=== PATIENT | female | born 1985 | race Caucasian/White ===

== ENCOUNTER 2016-10-31 14:18 | Emergency (ER) | payer MEDICAID ==
[~2016-10-31] VITALS: Ht 157.5 cm; Wt 54.0 kg
[~2016-10-31 14:18] MED LIST: DOXY100C47
[2016-10-31 14:23] VITALS: Ht 157.5 cm; Wt 54.0 kg
[2016-10-31 15:33] LABS: ADD UMIC YES; URINE BILIRUBIN (Dip) NEGATIVE (NEGATIVE); URINE BLOOD (Dip) 2+ (NEGATIVE); URINE COLOR LT. YELLOW (YELLOW); URINE GLUCOSE (Dip) NEGATIVE (NEGATIVE); URINE KETONES (Dip) NEGATIVE (NEGATIVE); URINE LEUKOCYTE ESTERASE (Dip) TRACE (NEGATIVE); URINE NITRITE (Dip) NEGATIVE (NEGATIVE); URINE TOTAL PROTEIN (Dip) TRACE (NEGATIVE); URINE UROBILINOGEN (Dip) 0.2 E.U./dL (0.1-1.0)
[2016-10-31 15:40] LABS: MUCUS,URINE FEW; SQUAMOUS EPITHELIAL CELL,UR FEW
[2016-10-31 15:51] LABS: BASOPHILS % 0.3 % (0.0-2.0); EOSINOPHILS # 0.1 10^3/ul (0.0-0.5); EOSINOPHILS % 1.1 % (0.0-7.0); HEMATOCRIT 38.2 % (37.0-47.0); HEMOGLOBIN 12.8 g/dl (12.0-16.0); LYMPHOCYTES # 2.8 10^3/ul (0.8-2.9); LYMPHOCYTES % 36.4 % (15.0-51.0); MEAN CORPUSCULAR HEMOGLOBIN 29.5 pg (29.0-33.0); MEAN CORPUSCULAR HGB CONC 33.6 g/dl (32.0-37.0); MEAN PLATELET VOLUME 8.5 fl (7.4-10.4); MONOCYTE # 0.5 10^3/ul (0.3-0.9); NEUTROPHIL # 4.4 10^3/ul (1.6-7.5); NEUTROPHILS % 56.2 % (39.0-77.0); PLATELET COUNT 216 10^3/UL (140-440); RED BLOOD COUNT 4.34 10^6/ul (4.20-5.40); RED CELL DISTRIBUTION WIDTH 13.2 % (11.5-14.5); UNCORRECTED WBC 7.8 10^3/ul (4.8-10.8); WHITE BLOOD COUNT 7.8 10^3/ul (4.8-10.8)
[2016-10-31 16:00] LABS: CONDITION 1
[2016-10-31 16:02] LABS: ALBUMIN 4.1 g/dl (3.3-4.9); POTASSIUM 4.1 mmol/L (3.5-5.1)
[2016-10-31 16:04] LABS: CREATININE 0.69 mg/dl (0.44-1.00)
[2016-10-31 16:05] LABS: ALBUMIN/GLOBULIN RATIO 1.36; BILIRUBIN,INDIRECT 0.1 mg/dl (0-1.1); BILIRUBIN,TOTAL 0.1 mg/dl (0.2-1.3); CALCIUM 8.8 mg/dl (8.4-10.2); TOTAL PROTEIN 7.1 g/dl (6.1-8.1)
--- NOTE | 2016-10-31 16:56 | RADRPT ---
PROCEDURE: US Pelvis. CLINICAL INDICATION: Lower pelvic pain, vaginal bleeding. TECHNIQUE: Multiple sonographic images of the pelvis were obtained utilizing a transabdominal and endovaginal technique. The images were reviewed on a PACS workstation. COMPARISON: Ovary ultrasound from 08/11/2014. FINDINGS: The uterus is retroverted and measures 9.2 x 4.5 x 5.8 cm. The endometrial echo complex is remarkabl e for a trace amount of fluid in the endometrial canal and measures 6.1 mm. There is trace free flui d in the cul-de-sac. The right ovary has a normal echotexture and measures 2.3 x 1.7 x 2.2 cm. The left ovary has a normal echotexture and measures 2.8 x 1.9 x 1.9 cm. There is a 1.5 x 1.2 x 1.3 cm l eft ovarian cyst. There is normal Doppler flow to both ovaries. No adnexal masses are noted. IMPRESSION: 1. 1.5 x 1.2 x 1.3 cm left ovarian cyst, likely a follicle. The remainder of the study is unremarka ble. RPTAT: [facility] Physician Philomena Date Time Electronically viewed and signed by Physician Philomena on 10/31/2016 16:56 /
[2016-10-31] MEDS ORDERED: IBUP400T22 PO (17:24)
[2016-10-31] MEDS ORDERED: CEPH-443 PO (17:24)
--- NOTE | 2016-10-31 18:05 | ERD ---
ER Documentation Chief Complaint Date/Time DATE: 10/31/16 TIME: 18:00 Chief Complaint Pt with Pelvic pain X 2 weeks, spotting. HPI 31-year-old female who is a presents to the ED complaining of vaginal bleeding that started 1 month ago on September 15, 2016. States that she has had to change 2 pads per day. States that this was the day of her last menses. She reports that she had a vaginal tissue that came out of her vagina today and brought it to the ED. Reports that she has been taking Advil for her slight lower abdominal/pelvic pain. Denies any vaginal discharge, chest pain, shortness of breath, wheezing, nausea, vomiting, constipation, diarrhea, weakness. ROS All systems reviewed and are negative except as per history of present illness. Medications Home Meds Active Scripts Ibuprofen* (Motrin*) 400 Mg Tab, 400 MG PO Q6, #30 TAB Prov:ABEL BENJAMIN PA-C 10/31/16 Cephalexin* (Keflex*) 500 Mg Capsule, 500 MG PO QID for 7 Days, CAP Prov:ABEL BENJAMIN PA-C 10/31/16 Reported Medications Doxycycline Hyclate (Doxycycline Hyclate) 100 Mg Capsule., 1 BID 06/27/13 Allergies Allergies: Coded Allergies: No Known Allergy (Verified , 08/11/14) PMhx/Soc Medical and Surgical Hx: pt denies Medical Hx History of Surgery: Yes (C SECTION) Anesthesia Reaction: No Hx Neurological Disorder: No Hx Respiratory Disorders: No Hx Cardiac Disorders: No Hx Psychiatric Problems: No Hx Miscellaneous Medical Probl: No Hx Alcohol Use: No (DENIES) Hx Substance Use: No (DENIES) Smoking Status: Never smoker Physical Exam Vitals Vital Signs Date Time Temp Pulse Resp B/P Pulse Ox O2 Delivery O2 Flow Rate FiO2 10/31/16 14:23 97.6 76 18 110/71 100 Physical Exam Const: Ube-fbd-enjnohknu, well-nourished. In no acute distress. Head: Atraumatic, normocephalic Eyes: Normal Conjunctiva without injection. No purulent discharge. ENT: Normal external ear, nose. Moist oropharynx without tonsillar exudates. Non -erythematous pharynx. Uvula midline. No drooling. No trismus. Neck: No cervical midline tenderness. Full range of motion. No meningismus. No cervical lymphadenopathy. No JVD. Resp: Clear to auscultation bilaterally. No wheezing, rhonchi, rales, or crackles. No accessory muscle use. No retractions. Cardio: Regular rate and rhythm. No murmurs, rubs or gallops. Abd: Soft, suprapubic tenderness, non distended. Normal bowel sounds. No palpable masses. No rebound tenderness. No guarding. Negative McBurney's point. Negative psoas sign. Negative obturator sign. Skin: No petechiae or rashes Back: No midline tenderness. No CVA tenderness. Ext: No cyanosis, or edema. Neur: Awake and alert. Normal gait. Normal coordination. Psych: Normal Mood and Affect Result Diagram: 10/31/16 1535 10/31/16 1535 Results 24 hrs Laboratory Tests Test 10/31/16 15:20 10/31/16 15:35 Urine Bilirubin NEGATIVE Urine Clarity CLEAR Urine Color LT. YELLOW Urine Glucose NEGATIVE% Urine Hemoglobin 2+ Urine Ketones NEGATIVE Urine Leukocyte Esterase TRACE Urine Microscopic RBC 2-5/HPF Urine Microscopic WBC 5-10/HPF Urine Mucus FEW Urine Nitrite NEGATIVE Urine Specific [place] >=1.030 Urine Squamous Epithelial Cells FEW Urine Total Protein TRACE Urine Urobilinogen 0.2 E.U./dL Urine pH 6.5 Alanine Aminotransferase (ALT/SGPT) 20IU/L Albumin 4.1g/dl Albumin/Globulin Ratio 1.36 Alkaline Phosphatase 72IU/L Anion Gap 15 Aspartate Amino Transf (AST/SGOT) 19IU/L Basophils # 0.010^3/ul Basophils % 0.3% Blood Urea Nitrogen 12mg/dl Calcium Level 8.8mg/dl Carbon Dioxide Level 28mmol/L Chloride Level 105mmol/L Creatinine 0.69mg/dl Direct Bilirubin 0.00mg/dl Eosinophils # 0.110^3/ul Eosinophils % 1.1% Globulin 3.00g/dl Glucose Level 94mg/dl Hematocrit 38.2% Hemoglobin 12.8g/dl Indirect Bilirubin 0.1mg/dl Lipase 132U/L Lymphocytes # 2.810^3/ul Lymphocytes % 36.4% Mean Corpuscular Hemoglobin 29.5pg Mean Corpuscular Hemoglobin Concent 33.6g/dl Mean Corpuscular Volume 88.0fl Mean Platelet Volume 8.5fl Monocytes # 0.510^3/ul Monocytes % 6.0% Neutrophils # 4.410^3/ul Neutrophils % 56.2% Nucleated Red Blood Cells # 0.010^3/ul Nucleated Red Blood Cells % 0.0/100WBC Platelet Count 02641^3/UL Potassium Level 4.1mmol/L Red Blood Count 4.3410^6/ul Red Cell Distribution Width 13.2% Sodium Level 144mmol/L Total Bilirubin 0.1mg/dl Total Protein 7.1g/dl White Blood Count 7.810^3/ul Procedures/MDM 31-year-old female with no significant past medical history who is a presents the ED complaining of lower pelvic pain associated with vaginal bleeding that started 1 month ago. Patient is afebrile nontoxic appearing. Patient has normal vital signs. An ultrasound, CMP, CBC, UA was ordered to evaluate patient. CBC: No leukocytosis. No e/o of systemic infection. No e/o anemia. CMP: No e/o severe acidosis, alkalosis, renal failure, diabetic ketoacidosis, liver disease Urine: No elevation in nitrites, trace leukocyte esterase with 5-10 WBC, hematuria. No evidence of UTI Patient brought in a vaginal tissue that will be sent out for pathology. PROCEDURE: US Pelvis. CLINICAL INDICATION: Lower pelvic pain, vaginal bleeding. TECHNIQUE: Multiple sonographic images of the pelvis were obtained utilizing a transabdominal and endovaginal technique. The images were reviewed on a PACS workstation. COMPARISON: Ovary ultrasound from 08/11/2014. FINDINGS: The uterus is retroverted and measures 9.2 x 4.5 x 5.8 cm. The endometrial echo complex is remarkable for a trace amount of fluid in the endometrial canal and measures 6.1 mm. There is trace free fluid in the cul-de-sac. The right ovary has a normal echotexture and measures 2.3 x 1.7 x 2.2 cm. The left ovary has a normal echotexture and measures 2.8 x 1.9 x 1.9 cm. There is a 1.5 x 1.2 x 1.3 cm left ovarian cyst. There is normal Doppler flow to both ovaries. No adnexal masses are noted. IMPRESSION: 1. 1.5 x 1.2 x 1.3 cm left ovarian cyst, likely a follicle. The remainder of the study is unremarkable. Patient's bleeding symptoms have stabilized while in the department. Patient may have a slight urinary tract infection. Low suspicion for symptomatic anemia , ectopic , sepsis, PID, appendicitis, ovarian torsion, tubo-ovarian abscess, surgical abdomen, or other emergent conditions. Discharge medications: Keflex, Ibuprofen Patient to follow up with SENIOR ARCHITECT/DESIGN MANAGER in 2 days for further evaluation and treatment. Patient is to return sooner to the ED for any worsening symptoms. Patient's questions were answered. Patient understood and agreed with discharge plan. Departure Diagnosis: Primary Impression: Dysfunctional uterine bleeding Additional Impressions: Urinary tract infection Urinary tract infection type: site unspecified Hematuria presence: without hematuria Qualified Code: N39.0 - Urinary tract infection without hematuria, site unspecified Ovarian cyst Laterality: left Qualified Code: N83.202 - Cyst of left ovary Condition: Stable Patient Instructions: Urinary Tract Infections in Women, Dysfunctional Uterine Bleeding, Ovarian Cyst Referrals: [facility] YOU HAVE RECEIVED A MEDICAL SCREENING EXAM AND THE RESULTS INDICATE THAT YOU DO NOT HAVE A CONDITION THAT REQUIRES URGENT TREATMENT IN THE EMERGENCY DEPARTMENT. FURTHER EVALUATION AND TREATMENT OF YOUR CONDITION CAN WAIT UNTIL YOU ARE SEEN IN YOUR DOCTORS OFFICE WITHIN THE NEXT 1-2 DAYS. IT IS YOUR RESPONSIBILITY TO MAKE AN APPOINTMENT FOR FOLOW-UP CARE. IF YOU HAVE A PRIMARY DOCTOR --you should call your primary doctor and schedule an appointment IF YOU DO NOT HAVE A PRIMARY DOCTOR YOU CAN CALL OUR PHYSICIAN REFERRAL HOTLINE AT IF YOU CAN NOT AFFORD TO SEE A PHYSICIAN YOU CAN CHOSE FROM THE FOLLOWING [facility] [address] [facility]. [facility] [address] [facility] [address] [facility]. [facility] [address] [facility]. [facility] [address] [facility]. [facility]. [address] [facility] YOU HAVE RECEIVED A MEDICAL SCREENING EXAM AND THE RESULTS INDICATE THAT YOU DO NOT HAVE A CONDITION THAT REQUIRES URGENT TREATMENT IN THE EMERGENCY DEPARTMENT. FURTHER EVALUATION AND TREATMENT OF YOUR CONDITION CAN WAIT UNTIL YOU ARE SEEN IN YOUR DOCTORS OFFICE WITHIN THE NEXT 1-2 DAYS. IT IS YOUR RESPONSIBILITY TO MAKE AN APPOINTMENT FOR FOLOW-UP CARE. IF YOU HAVE A PRIMARY DOCTOR --you should call your primary doctor and schedule and appointment IF YOU DO NOT HAVE A PRIMARY DOCTOR YOU CAN CALL OUR PHYSICIAN REFERRAL HOTLINE AT . IF YOU CAN NOT AFFORD TO SEE A PHYSICIAN YOU CAN CHOSE FROM THE FOLLOWING [facility] INSTITUTIONS: [facility] [address] [place] [address] [facility] [address] [place] [address] [facility] + [facility] [address] [place] [address] SENIOR ARCHITECT/DESIGN MANAGER [place] [address] [facility] [address] [place] [address] [address] [place] [address] [address] [place] [address] [place] [address] [address] [facility] [address] [facility], [address] [address] [facility] [address] [place] [address] [facility] [address] [place] [address] [phone] [facility] [address] - ARSEN MENDOZA [address], [facility] [address] [address] [address] [facility] [address], [facility] [address] [address] [facility] [address] [place], [place] [address] [facility] Hours: 8:00 am - 5:00 pm Additional Instructions: Seguimiento con ginecoobstetra dentro de 2 maria Regrese a estas instalaciones si no se mejora rich esperbamos o rich le dijimos. ABEL BENJAMIN PA-C Oct 31, 2016 18:05
== END 2016-10-31 17:53 | disposition home or self-care (01) ==
LOC: FTE 14:18
DX: N93.8 Other specified abnormal uterine and vaginal bleeding (principal); N39.0 Urinary tract infection, site not specified; N83.202 Unspecified ovarian cyst, left side; R10.2 Pelvic and perineal pain
CPT/HCPCS: 76830; 76856; 80053; 81001; 83690; 85025; 88305; Z7502; 81003

== ENCOUNTER 2016-12-13 14:08 | Emergency (ER) | payer MEDICAID ==
[~2016-12-13] VITALS: Ht 165.1 cm; Wt 53.3 kg
[~2016-12-13 14:08] MED LIST changes: +CEPH-443 PO; +IBUP400T22 PO
[2016-12-13 14:35] VITALS: Ht 165.1 cm; Wt 53.3 kg
[2016-12-13 17:22] LABS: ADD SCAN DIFF NO
[2016-12-13 17:24] LABS: BASOPHILS % 0.3 % (0.0-2.0); EOSINOPHILS # 0.2 10^3/ul (0.0-0.5); EOSINOPHILS % 1.9 % (0.0-7.0); HEMATOCRIT 38.8 % (37.0-47.0); HEMOGLOBIN 13.1 g/dl (12.0-16.0); LYMPHOCYTES % 37.7 % (15.0-51.0); MEAN CORPUSCULAR HEMOGLOBIN 29.9 pg (29.0-33.0); MEAN CORPUSCULAR HGB CONC 33.8 g/dl (32.0-37.0); MEAN CORPUSCULAR VOLUME 88.6 fl (82.0-101.0); MEAN PLATELET VOLUME 10.3 fl (7.4-10.4); MONOCYTE # 0.6 10^3/ul (0.3-0.9); MONOCYTES % 7.6 % (0.0-11.0); NEUTROPHIL # 4.2 10^3/ul (1.6-7.5); NEUTROPHILS % 52.4 % (39.0-77.0); PLATELET COUNT 221 10^3/UL (140-415); RED BLOOD COUNT 4.38 10^6/ul (4.20-5.40); RED CELL DISTRIBUTION WIDTH 12.4 % (11.5-14.5); WHITE BLOOD COUNT 7.9 10^3/ul (4.8-10.8)
[2016-12-13 17:30] LABS: ADD UMIC YES; URINE BILIRUBIN (Dip) NEGATIVE (NEGATIVE); URINE BLOOD (Dip) 3+ (NEGATIVE); URINE GLUCOSE (Dip) NEGATIVE (NEGATIVE); URINE KETONES (Dip) NEGATIVE (NEGATIVE); URINE LEUKOCYTE ESTERASE (Dip) TRACE (NEGATIVE); URINE NITRITE (Dip) NEGATIVE (NEGATIVE); URINE TOTAL PROTEIN (Dip) NEGATIVE (NEGATIVE); URINE UROBILINOGEN (Dip) 0.2 E.U./dL (0.1-1.0)
[2016-12-13 17:34] LABS: POTASSIUM 3.9 mmol/L (3.5-5.1)
[2016-12-13 17:35] LABS: URINE COLOR YELLOW (YELLOW)
[2016-12-13 17:36] LABS: ALBUMIN/GLOBULIN RATIO 1.05; BILIRUBIN,INDIRECT 0.1 mg/dl (0-1.1); BILIRUBIN,TOTAL 0.1 mg/dl (0.2-1.3); CREATININE 0.64 mg/dl (0.44-1.00); TOTAL PROTEIN 7.8 g/dl (6.1-8.1)
[2016-12-13 17:37] LABS: CALCIUM 9.1 mg/dl (8.4-10.2)
[2016-12-13 17:42] LABS: BACTERIA,URINE FEW; SQUAMOUS EPITHELIAL CELL,UR MODERATE; URINE RBCS >50 /HPF (0)
[2016-12-13] MEDS ORDERED: SOD CHLORIDE 0.9% 100 ML ONE (18:16)
[2016-12-13] MEDS ORDERED: IOHEXOL 300MG/ML 150 ML BTL ONE (18:16)
--- NOTE | 2016-12-13 18:43 | RADRPT ---
PROCEDURE: CT abdomen and pelvis with. contrast. CLINICAL INDICATION: Hematuria. Back pain. TECHNIQUE: IV contrast enhanced CT examination of the abdomen and pelvis, with axial, sagittal and coronal reformatted images. 100 cc Isovue 300 nonionic IV contrast were employed. Automated dose e xposure control was employed. CTDI: 9 mGy and DLP: 409.82 mGy-cm. COMPARISON: None. FINDINGS: CT abdomen: The lung bases are clear. The heart size is normal, without pericardial thickening or effusion. The liver is normal in size and density without focal mass or intrahepatic biliary dilatation. The spleen is normal in size and homogeneous in density. The stomach is partially collapsed, but is alex ssly unremarkable. The pancreas as visualized is normal. The gallbladder and biliary tree are unre markable and there is no evidence for biliary dilatation. The adrenal glands are symmetric and norm al. There is a 6 x 3 x 3 mm calculus at the right ureteral pelvic junction, and there is mild right hydronephrosis. Findings are compatible with obstructive uropathy. No additional obstructive uropa thy is identified. The aorta is of normal caliber. There is no retroperitoneal lymphadenopathy. The mookie hepatis reg ion is clear. The bowel and mesentery, as visualized, are equally unremarkable. CT pelvis: The small bowel loops situated within the pelvis are unremarkable. The pelvic organs are normal. T he pelvic sidewalls and inguinal regions are clear. The sigmoid colon and rectum are all unremarkab le. No mass, lymphadenopathy, or free fluid is seen. No acute inflammation is seen. The appendix is unremarkable. The surrounding osseous structures are remarkable for mild degenerative spondylosis of the spine. N o osteolytic or osteoblastic lesion is detected. IMPRESSION: 1. 6 x 3 x 3 mm calculus at the right ureteral pelvic junction. 2.. There is mild right hydronephrosis compatible with obstructive uropathy. 3. Otherwise, no acute process in the abdomen RPTAT: [facility] Physician Kylee Date Time Electronically viewed and signed by Physician Kylee on 12/13/2016 18:42 RS/
[2016-12-13] MEDS ORDERED: TAMS-14 PO (20:36)
[2016-12-13] MEDS ORDERED: HYDR-902 PO (20:36)
[2016-12-13] MEDS ORDERED: CIPR500T4 PO (20:36)
--- NOTE | 2016-12-13 20:40 | ERD ---
ER Documentation Chief Complaint Date/Time DATE: 12/13/16 TIME: 20:39 Chief Complaint FLANK PAIN & HEMATURIA STARTING TODAY HPI This is a 31-year-old female who complains of day 2 of right back pain with gross hematuria this morning. She says the pain is off and on and is mild in nature no vomiting no diarrhea no fever no abdominal pain no history of kidney stones no frequency of urination or dysuria. Pain is nonradiating and nothing makes the pain worse or better ROS All systems reviewed and are negative except as per history of present illness. Medications Home Meds Active Scripts Hydrocodone/Acetaminophen (Ardara 10-325 Tablet) 1 Each Tablet, 1 TAB PO Q6H Y for PAIN, #20 TAB Prov:ORAL CURRY DO 12/13/16 Ciprofloxacin Hcl* (Ciprofloxacin Hcl*) 500 Mg Tablet, 500 MG PO BID for 10 Days , TAB Prov:JULES CURRYSTOLOS Rush. DO 12/13/16 Tamsulosin Hcl* (Flomax*) 0.4 Mg Cap.er.24h, 0.4 MG PO DAILY, #10 CAP Prov:JIMENA CURRYS Kevin DO 12/13/16 Ibuprofen* (Motrin*) 400 Mg Tab, 400 MG PO Q6, #30 TAB Prov:ABEL BENJAMIN PA-C 10/31/16 Cephalexin* (Keflex*) 500 Mg Capsule, 500 MG PO QID for 7 Days, CAP Prov:ABEL BENJAMIN PA-C 10/31/16 Reported Medications Doxycycline Hyclate (Doxycycline Hyclate) 100 Mg Capsule., 1 BID 06/27/13 Allergies Allergies: Coded Allergies: No Known Allergy (Verified , 08/11/14) PMhx/Soc History of Surgery: Yes (C SECTION) Anesthesia Reaction: No Hx Neurological Disorder: No Hx Respiratory Disorders: No Hx Cardiac Disorders: No Hx Psychiatric Problems: No Hx Miscellaneous Medical Probl: No Hx Alcohol Use: No (DENIES) Hx Substance Use: No (DENIES) FmHx Family History: No coronary disease Physical Exam Vitals Vital Signs Date Time Temp Pulse Resp B/P Pulse Ox O2 Delivery O2 Flow Rate FiO2 12/13/16 14:35 98.7 83 16 128/63 98 Physical Exam Const: Well-developed, well-nourished Head: Atraumatic, normocephalic Eyes: Normal Conjunctiva, PERRLA, EOMI, normal sclera, no nystagmus ENT: Normal External Ears, Nose and Mouth, moist mucus membranes. Neck: Full range of motion. No meningismus, no lymphadenopathy. Resp: Clear to auscultation bilaterally, no wheezing, rhonchi, rales Cardio: Regular rate and rhythm, no murmurs, S1 S2 present Abd: Soft, non tender x 4, non distended. Normal bowel sounds, no guarding or rebound, no pulsitile abdominal masses or bruits Skin: No petechiae or rashes, no ecchymosis , no maculopapular rash Back: Mild right CVA tenderness] Ext: No cyanosis, or edema, FROM x 4, normal inspection, neurovascularly intact x 4 Neur: Awake and alert, STR 5/5 x 4, sensation intact x 4, no focal findings, cerebellum intact Psych: Normal Mood and Affect Result Diagram: 12/13/16 1716 12/13/16 1716 Results 24 hrs Laboratory Tests Test 12/13/16 17:16 Alanine Aminotransferase (ALT/SGPT) 17IU/L Albumin 4.0g/dl Albumin/Globulin Ratio 1.05 Alkaline Phosphatase 71IU/L Anion Gap 15 Aspartate Amino Transf (AST/SGOT) 16IU/L Basophils # 0.010^3/ul Basophils % 0.3% Blood Urea Nitrogen 14mg/dl Calcium Level 9.1mg/dl Carbon Dioxide Level 26mmol/L Chloride Level 105mmol/L Creatinine 0.64mg/dl Direct Bilirubin 0.00mg/dl Eosinophils # 0.210^3/ul Eosinophils % 1.9% Globulin 3.80g/dl Glucose Level 83mg/dl Hematocrit 38.8% Hemoglobin 13.1g/dl Indirect Bilirubin 0.1mg/dl Lymphocytes # 3.010^3/ul Lymphocytes % 37.7% Mean Corpuscular Hemoglobin 29.9pg Mean Corpuscular Hemoglobin Concent 33.8g/dl Mean Corpuscular Volume 88.6fl Mean Platelet Volume 10.3fl Monocytes # 0.610^3/ul Monocytes % 7.6% Neutrophils # 4.210^3/ul Neutrophils % 52.4% Nucleated Red Blood Cells # 0.010^3/ul Nucleated Red Blood Cells % 0.0/100WBC Platelet Count 24581^3/UL Potassium Level 3.9mmol/L Red Blood Count 4.3810^6/ul Red Cell Distribution Width 12.4% Sodium Level 142mmol/L Total Bilirubin 0.1mg/dl Total Protein 7.8g/dl Urine Amorphous Urates MODERATE Urine Bacteria FEW Urine Bilirubin NEGATIVE Urine Clarity CLOUDY Urine Color YELLOW Urine Glucose NEGATIVE% Urine Hemoglobin 3+ Urine Ketones NEGATIVE Urine Leukocyte Esterase TRACE Urine Microscopic RBC >50/HPF Urine Microscopic WBC 10-25/HPF Urine Nitrite NEGATIVE Urine Specific [place] >=1.030 Urine Squamous Epithelial Cells MODERATE Urine Total Protein NEGATIVE Urine Urobilinogen 0.2 E.U./dL Urine pH 6.0 White Blood Count 7.910^3/ul Current Medications Medications (Trade) Dose Ordered Sig/Don Route PRN Reason Start Time Stop Time Status Last Admin Dose Admin IV Flush 10 ml 10 ml STK-MED ONCE .ROUTE 12/13/16 18:16 12/13/16 18:17 DC 12/13/16 18:27 Sodium Chloride (NS) 100 ml @ ud STK-MED ONCE .ROUTE 12/13/16 18:16 12/13/16 18:17 DC 12/13/16 18:27 Iohexol (Omnipaque 300mg/ ml) 150 ml STK-MED ONCE .ROUTE 12/13/16 18:16 12/13/16 18:17 DC 12/13/16 18:27 Procedures/MDM PROCEDURE: CT abdomen and pelvis with. contrast. CLINICAL INDICATION: Hematuria. Back pain. TECHNIQUE: IV contrast enhanced CT examination of the abdomen and pelvis, with axial, sagittal and coronal reformatted images. 100 cc Isovue 300 nonionic IV contrast were employed. Automated dose exposure control was employed. CTDI: 9 mGy and DLP: 409.82 mGy-cm. COMPARISON: None. FINDINGS: CT abdomen: The lung bases are clear. The heart size is normal, without pericardial thickening or effusion. The liver is normal in size and density without focal mass or intrahepatic biliary dilatation. The spleen is normal in size and homogeneous in density. The stomach is partially collapsed, but is grossly unremarkable. The pancreas as visualized is normal. The gallbladder and biliary tree are unremarkable and there is no evidence for biliary dilatation. The adrenal glands are symmetric and normal. There is a 6 x 3 x 3 mm calculus at the right ureteral pelvic junction, and there is mild right hydronephrosis. Findings are compatible with obstructive uropathy. No additional obstructive uropathy is identified. The aorta is of normal caliber. There is no retroperitoneal lymphadenopathy. The mookie hepatis region is clear. The bowel and mesentery, as visualized, are equally unremarkable. CT pelvis: The small bowel loops situated within the pelvis are unremarkable. The pelvic organs are normal. The pelvic sidewalls and inguinal regions are clear. The sigmoid colon and rectum are all unremarkable. No mass, lymphadenopathy, or free fluid is seen. No acute inflammation is seen. The appendix is unremarkable. The surrounding osseous structures are remarkable for mild degenerative spondylosis of the spine. No osteolytic or osteoblastic lesion is detected. IMPRESSION: 1. 6 x 3 x 3 mm calculus at the right ureteral pelvic junction. 2.. There is mild right hydronephrosis compatible with obstructive uropathy. 3. Otherwise, no acute process in the abdomen RPTAT: UU Physician Kylee Date Time Electronically viewed and signed by Physician Kylee on 12/13/2016 18:42 RS/ CC: ORAL CURRY DO Spoke with Dr. Dickey of urology who will see her in the office is follow-up. We will put her on Cipro Ardara and Flomax Departure Diagnosis: Primary Impression: Ureterolithiasis Additional Impression: Urinary tract infection Urinary tract infection type: site unspecified Hematuria presence: with hematuria Qualified Code: N39.0 - Urinary tract infection with hematuria, site unspecified Condition: Stable Patient Instructions: Understanding Urinary Tract Infections (UTIs), Kidney Stone W/ Colic ORAL CURRY DO Dec 13, 2016 20:40
[2016-12-13 21:03] VITALS: BP 118/61; PULSE 82; RESP 16; TEMP 98.3
== END 2016-12-13 21:04 | disposition home or self-care (01) ==
LOC: FTE 14:08
DX: N20.1 Calculus of ureter (principal); N39.0 Urinary tract infection, site not specified
CPT/HCPCS: 36415; 74178; 80053; 81001; 81003; 85025; Q9967; Z7502; Z7610

== ENCOUNTER 2016-12-17 18:06 | Emergency (ER) | payer MEDICAID ==
[~2016-12-17] VITALS: Ht 157.5 cm; Wt 53.0 kg
[~2016-12-17 18:06] MED LIST changes: +CIPR500T4 PO; +HYDR-902 PO; +TAMS-14 PO
[2016-12-17] MEDS ORDERED: ONDANSETRON (ODT) 4 MG TAB ODT STA (18:51)
[2016-12-17] MEDS ORDERED: morphine 10 MG INJ IM ONE (19:00)
[2016-12-17 19:22] LABS: ADD UMIC YES; URINE BILIRUBIN (Dip) NEGATIVE (NEGATIVE); URINE BLOOD (Dip) 3+ (NEGATIVE); URINE COLOR LT. YELLOW (YELLOW); URINE GLUCOSE (Dip) NEGATIVE (NEGATIVE); URINE KETONES (Dip) NEGATIVE (NEGATIVE); URINE LEUKOCYTE ESTERASE (Dip) 1+ (NEGATIVE); URINE NITRITE (Dip) NEGATIVE (NEGATIVE); URINE TOTAL PROTEIN (Dip) NEGATIVE (NEGATIVE); URINE UROBILINOGEN (Dip) 0.2 E.U./dL (0.1-1.0)
[2016-12-17 19:45] LABS: BACTERIA,URINE MODERATE; URINE RBCS >200 /HPF (0)
[2016-12-17] MEDS ORDERED: morphine 4 MG/ML VIAL IV STA (19:48)
[2016-12-17] MEDS ORDERED: KETOROLAC 30 MG INJ IV STA (19:48)
[2016-12-17] MEDS ORDERED: CEFTRIAXONE 2,000 MG in SOD CHLORIDE 0.9% 50 ML IVPB ONE (20:00)
[2016-12-17] MEDS ORDERED: CEFTRIAXONE 2 GM/NS 50 ML IVPB ONE (20:00)
[2016-12-17] MEDS ORDERED: SOD CHLORIDE 0.9% 1,000 ML IV ONE (20:00)
[2016-12-17 20:05] LABS: ADD SCAN DIFF NO
[2016-12-17 20:07] LABS: BASOPHILS % 0.4 % (0.0-2.0); EOSINOPHILS # 0.2 10^3/ul (0.0-0.5); EOSINOPHILS % 1.5 % (0.0-7.0); HEMATOCRIT 41.5 % (37.0-47.0); LYMPHOCYTES # 2.7 10^3/ul (0.8-2.9); LYMPHOCYTES % 24.3 % (15.0-51.0); MEAN CORPUSCULAR HGB CONC 33.7 g/dl (32.0-37.0); MEAN CORPUSCULAR VOLUME 88.9 fl (82.0-101.0); MEAN PLATELET VOLUME 10.5 fl (7.4-10.4); MONOCYTE # 0.7 10^3/ul (0.3-0.9); MONOCYTES % 5.9 % (0.0-11.0); NEUTROPHIL # 7.5 10^3/ul (1.6-7.5); NEUTROPHILS % 67.6 % (39.0-77.0); PLATELET COUNT 240 10^3/UL (140-415); RED BLOOD COUNT 4.67 10^6/ul (4.20-5.40); RED CELL DISTRIBUTION WIDTH 12.5 % (11.5-14.5); WHITE BLOOD COUNT 11.1 10^3/ul (4.8-10.8)
[2016-12-17 20:18] LABS: POTASSIUM 3.2 mmol/L (3.5-5.1)
[2016-12-17 20:20] LABS: CREATININE 0.72 mg/dl (0.44-1.00)
[2016-12-17 20:21] LABS: CALCIUM 9.1 mg/dl (8.4-10.2)
[2016-12-17] MEDS ORDERED: POTASSIUM CHLORIDE (SR) 20 MEQ TAB PO STA (20:27)
[2016-12-17] MEDS ORDERED: CEPH-443 PO (20:45)
[2016-12-17] MEDS ORDERED: IBUP-1542 PO (20:45)
[2016-12-17] MEDS ORDERED: ONDA4TAB14 PO (20:45)
[2016-12-17] MEDS ORDERED: OXYC-279 PO (20:45)
[2016-12-17 21:08] VITALS: PULSE 72; TEMP 98.2
--- NOTE | 2016-12-17 21:38 | ERA ---
ER Documentation Chief Complaint Date/Time DATE: 12/17/16 TIME: 21:32 Chief Complaint right flank pain x 1 hour. hx of kidney stone HPI Patient is a 31-year-old female with known right U PJ stone, who presents with 2 hours of worsening right flank pain radiating to the right groin associated with 2 episodes of nonbilious, nonbloody emesis. No fever, no diarrhea, no cough, no shortness of breath. Patient has history of one prior kidney stone. Patient was seen in this hospital approximately 1 week ago and stone was diagnosed at that time. Patient does not have a primary physician and has not been able to arrange urology follow-up. ROS All systems reviewed and are negative except as per history of present illness. Medications Home Meds Active Scripts Ondansetron (Ondansetron Odt) 4 Mg Tab.rapdis, 4 MG PO Q6H Y for NAUSEA AND/OR VOMITING, #15 TAB 0 Refills Prov:AURORA DE SANTIAGO 12/17/16 Ibuprofen* (Motrin*) 600 Mg Tab, 600 MG PO Q8, #30 TAB Prov:AURORA DE SANTIAGO 12/17/16 Cephalexin* (Keflex*) 500 Mg Capsule, 500 MG PO QID for 7 Days, CAP 0 Refills Prov:AURORA DE SANTIAGO 12/17/16 Oxycodone HCl/Acetaminophen (Percocet 5-325 mg Tablet) 1 Each Tablet, 1-2 EACH PO Q6H Y for PAIN LEVEL 7-10, #20 TAB 0 Refills Prov:AURORA DE SANTIAGO 12/17/16 Hydrocodone/Acetaminophen ([place] 10-325 Tablet) 1 Each Tablet, 1 TAB PO Q6H Y for PAIN, #20 TAB Prov:ORAL CURRY. DO 12/13/16 Ciprofloxacin Hcl* (Ciprofloxacin Hcl*) 500 Mg Tablet, 500 MG PO BID for 10 Days , TAB Prov:ORAL CURRY. DO 12/13/16 Tamsulosin Hcl* (Flomax*) 0.4 Mg Cap.er.24h, 0.4 MG PO DAILY, #10 CAP Prov:ORAL CURRY DO 12/13/16 Ibuprofen* (Motrin*) 400 Mg Tab, 400 MG PO Q6, #30 TAB Prov:ABEL BENJAMIN PA-C 10/31/16 Cephalexin* (Keflex*) 500 Mg Capsule, 500 MG PO QID for 7 Days, CAP Prov:ABEL BENJAMIN PA-C 10/31/16 Reported Medications Doxycycline Hyclate (Doxycycline Hyclate) 100 Mg Capsule., 1 BID 06/27/13 Allergies Allergies: Coded Allergies: No Known Allergy (Verified , 12/17/16) PMhx/Soc Past medical history: nephrolithiasis Past surgical history: Denies Social history: Denies tobacco or alcohol History of Surgery: Yes (C SECTION) Anesthesia Reaction: No Hx Neurological Disorder: No Hx Respiratory Disorders: No Hx Cardiac Disorders: No Hx Psychiatric Problems: No Hx Miscellaneous Medical Probl: No Hx Alcohol Use: No (DENIES) Hx Substance Use: No (DENIES) Hx Tobacco Use: No (DENIES) Smoking Status: Never smoker FmHx Noncontributory Family History: No diabetes Physical Exam Vitals Vital Signs Date Time Temp Pulse Resp B/P Pulse Ox O2 Delivery O2 Flow Rate FiO2 12/17/16 21:08 98.2 72 18 93/50 100 Room Air 12/17/16 18:31 97.9 95 20 131/83 98 Physical Exam Const: Alert, crying, in moderate distress Head: Atraumatic Eyes: Normal Conjunctiva ENT: Normal External Ears, Nose and Mouth. Neck: Full range of motion. No meningismus. Resp: Clear to auscultation bilaterally, no wheezes, rales, or rhonchi Cardio: Regular rate and rhythm, no murmurs Abd: Soft, mild right flank tenderness, no guarding or rebound, non distended. Normal bowel sounds Skin: No petechiae or rashes Back: No midline tenderness. Positive right CVA tenderness Ext: No cyanosis, or edema Neur: Awake and alert, cranial nerves II through XII intact, strength and sensation intact in 4 extremities Psych: Normal Mood and Affect Result Diagram: 12/17/16195312/17/161953 Results 24 hrs Laboratory Tests Test 12/17/16 18:55 12/17/16 19:54 Urine Bacteria MODERATE Urine Bilirubin NEGATIVE Urine Clarity CLOUDY Urine Color LT. YELLOW Urine Epithelial Cells FEW Urine Glucose NEGATIVE% Urine Hemoglobin 3+ Urine Ketones NEGATIVE Urine Leukocyte Esterase 1+ Urine Microscopic RBC >200/HPF Urine Microscopic WBC 10-25/HPF Urine Nitrite NEGATIVE Urine Specific Goodman 1.010 Urine Total Protein NEGATIVE Urine Urobilinogen 0.2 E.U./dL Urine pH 7.5 Anion Gap 15 Basophils # 0.010^3/ul Basophils % 0.4% Blood Urea Nitrogen 13mg/dl Calcium Level 9.1mg/dl Carbon Dioxide Level 29mmol/L Chloride Level 102mmol/L Creatinine 0.72mg/dl Eosinophils # 0.210^3/ul Eosinophils % 1.5% Glucose Level 107mg/dl Hematocrit 41.5% Hemoglobin 14.0g/dl Lymphocytes # 2.710^3/ul Lymphocytes % 24.3% Mean Corpuscular Hemoglobin 30.0pg Mean Corpuscular Hemoglobin Concent 33.7g/dl Mean Corpuscular Volume 88.9fl Mean Platelet Volume 10.5fl Monocytes # 0.710^3/ul Monocytes % 5.9% Neutrophils # 7.510^3/ul Neutrophils % 67.6% Nucleated Red Blood Cells # 0.010^3/ul Nucleated Red Blood Cells % 0.0/100WBC Platelet Count 96109^3/UL Potassium Level 3.2mmol/L Red Blood Count 4.6710^6/ul Red Cell Distribution Width 12.5% Sodium Level 143mmol/L White Blood Count 11.110^3/ul Current Medications Medications (Trade) Dose Ordered Sig/Don Route PRN Reason Start Time Stop Time Status Last Admin Dose Admin Morphine Sulfate (morphine) 8 mg ONCE ONCE IM 12/17/16 19:00 12/17/16 19:01 DC 12/17/16 19:05 Ondansetron HCl 4 mg 4 mg ONCE STAT ODT 12/17/16 18:51 12/17/16 18:53 DC 12/17/16 19:02 Sodium Chloride (NS) 1,000 ml @ 1,000 mls/hr Q1H ONCE IV 12/17/16 20:00 12/17/16 20:59 DC 12/17/16 19:55 Ketorolac Tromethamine (Toradol) 30 mg ONCE STAT IV 12/17/16 19:48 12/17/16 19:50 DC 12/17/16 19:54 Morphine Sulfate 4 mg 4 mg ONCE STAT IV 12/17/16 19:48 12/17/16 19:50 DC 12/17/16 19:55 Ceftriaxone Sodium 2000 mg/ Sodium Chloride 50 ml @ 100 mls/hr ONCE ONCE IVPB 12/17/16 20:00 12/17/16 20:29 UNV Ceftriaxone Sodium (Rocephin) 50 ml @ 100 mls/hr ONCE ONCE IVPB 12/17/16 20:00 12/17/16 20:29 DC 12/17/16 20:24 Potassium Chloride (Klor-Con 20) 40 meq ONCE STAT PO 12/17/16 20:27 12/17/16 20:31 DC 12/17/16 20:43 Procedures/MDM MDM: Patient with known right UPJ stone, with colicky pain and vomiting. The patient was treated with initially IM morphine, followed by IV morphine and Toradol, as well as Zofran and IV fluids. Patient did not achieve pain control , and had ongoing emesis. Patient has evidence of hypokalemia and could not tolerate oral potassium repletion. There are a small number of leukocytes in the urine with bacteria, but no fever or significant leukocytosis and no significant change compared to previous UA. Urine culture sent. Discussed with Dr. Farley and will admit for pain and nausea control. There is no indication for emergent urology consultation. However, the patient will likely need urology follow-up due to the size of the stone, and low probability of spontaneous passage. No indication for repeat CT scan at this time. Departure Diagnosis: Primary Impression: Intractable vomiting Additional Impressions: Renal colic Urinary tract infection Intractable pain Hypokalemia Condition: Fair Patient Instructions: Kidney Stone W/ Colic Referrals: [facility] () [facility] examen mdico de control que le indica que no est en gus condicin que requiera tratamiento urgente en el Departamento de Emergencia. Un estudio ms profundo y el tratamiento de arias condicin pueden esperar sin ningn riesgo hasta que usted sea atendida/o en el consultorio de arias mdico o gus cl raul. Es responsabilidad suya arreglar gus lidya para el seguimiento del demetris. MANEJO DE CONDICIONES NO URGENTES EN EL FUTURO 1) Si usted tiene un mdico de atencin primaria: Usted debera llamar a arias mdico de atencin primaria antes de venir al departamento de emergencia. Despus de las horas de consultorio, arias doctor o arias asociado/a est disponible por telfono. El mdico o enfermero de sheri en el servicio telefnico puede asesorarle por kristin medio para atender el problema, o demetris contrario se puede programar gus lidya. 2) Si usted no tiene un mdico de atencin primaria: Llame al mdico o condado institucions de referencia que aparece abajo bar las horas de consultorio para hacer gus lidya para que le vean. SI USTED NO PUEDE PAGAR PARA MISSY UN MEDICO puede ir a: [facility] [id number] [place], [place] [id number] [place] [address]+[facility] [address] [place] [id number] [facility] [address] [place] [place] [id number] Additional Instructions: Go to [facility] to arrange urology follow up. Return to ER for worsening symptoms, vomiting, or fever. Comments Patient initially planned for discharge, but had worsening pain and recurrent vomiting, so disposition changed to admit, observation status AURORA DE SANTIAGO Dec 17, 2016 21:38
[2016-12-17] MEDS ORDERED: ONDANSETRON 4 MG INJ IV STA (21:42)
[2016-12-17] MEDS ORDERED: ONDANSETRON 4 MG INJ IV PRN (22:00)
[2016-12-17] MEDS ORDERED: POTASSIUM CHLORIDE 20 MEQ in SOD CHLORIDE 0.9% 100 ML IVPB ONE (22:00)
[2016-12-17] MEDS ORDERED: ACETAMINOPHEN 325 MG TAB PO PRN (22:00)
[2016-12-17 23:20] VITALS: Ht 157.5 cm; Wt 53.0 kg
[2016-12-17 23:21] VITALS: BP 107/57; RESP 19
--- NOTE | 2016-12-18 00:38 | HP ---
Date/Time of Note Date/Time of Note DATE: 12/18/16 TIME: 00:36 Assessment/Plan VTE Prophylaxis VTE Prophylaxis Intervention: ambulation Lines/Catheters IV Catheter Type (from Nrs): Saline Lock Assessment/Plan Assessment/Plan 1) Right Ureteral Stone causing Ureteral Colic, Nausea and Vomiting - Admitted to Observation from the ER - Pain and N/V Control 2) Urinary Tract Infection - Continue Rocephin IV - Urine Culture Pending HPI/ROS Admit Date/Time Admit Date/Time Dec 17, 2016 at 21:39 Hx of Present Illness Chief Complaint Rght flank pain x 1 hour. Hx of kidney stone HPI Patient is a 31-year-old female with known right U PJ stone, who presented to the ER with 2 hours of worsening right flank pain radiating to the right groin associated with 2 episodes of nonbilious, nonbloody emesis. No fever, no diarrhea, no cough, no shortness of breath. Patient has history of one prior kidney stone. Patient was seen in this hospital approximately 1 week ago and stone was diagnosed at that time, stone is 6 mm x 3 mm x 3 mm. Patient does not have a primary physician and has not been able to arrange urology follow-up. ROS Constitutional: No chills, No febrile ENT: No dysphagia Respiratory: No cough, No wheezing Cardiovascular: No chest pain, No palpitations Gastrointestinal: No nausea (Not presently), No vomiting (Not presently) Genitourinary: flank pain (RIght), No dysuria, No hematuria Musculoskeletal: No back pain, No neck pain Neurologic: No confusion, No dizziness, No headache Lymphatic: No tender nodes PMH/Family/Social Past Surgical History Past Surgical Hx: no surgical history Family History Significant Family History: no pertinent family hx Social History Alcohol Use: none Smoking Status: Never smoker Drug Use: none Exam/Review of Systems Vital Signs Vitals Vital Signs Date Time Temp Pulse Resp B/P Pulse Ox O2 Delivery O2 Flow Rate FiO2 12/17/16 23:21 97.7 63 19 107/57 99 12/17/16 21:08 Room Air Exam Exam Const: Sleeping comfortably. In no acute distress. Head: Normocephalic/Atraumatic Eyes: Normal Conjunctiva, No scleral icterus. ENT: Normal External Ears, Nose and Mouth. Neck: Supple. No lymphadenopathy. Resp: Clear to auscultation bilaterally, no, rales, rhonchi or rhonchi Cardio: Regular rhythm, normal rate, no murmurs Abd: Normoactive bowel sounds. Soft, , flat, mild right flank tenderness, no guarding or rebound, non distended. No HSM. Skin: Normal moisture and temperature. No rash. Back: No midline tenderness. Ext: No cyanosis, or edema Neur: Sleeping, easilytrouses to verbal command. Awake and alert, cranial nerves II through XII grossly intact, speech normal. Non-focal. Psych: Normal Mood and Affect. Good eye contact. Labs Result Diagram: 12/17/16195312/17/161953 Medications Medications Ondansetron (Ondansetron Odt) 4 Mg Tab.rapdis, 4 MG PO Q6H Y for NAUSEA AND/OR VOMITING, #15 TAB 0 Refills Prov:AURORA DE SANTIAGO 12/17/16 Ibuprofen* (Motrin*) 600 Mg Tab, 600 MG PO Q8, #30 TAB Prov:AURORA DE SANTIAGO 12/17/16 Cephalexin* (Keflex*) 500 Mg Capsule, 500 MG PO QID for 7 Days, CAP 0 Refills Prov:AURORA DE SANTIAGO 12/17/16 Oxycodone HCl/Acetaminophen (Percocet 5-325 mg Tablet) 1 Each Tablet, 1-2 EACH PO Q6H Y for PAIN LEVEL 7-10, #20 TAB 0 Refills Prov:AURORA DE SANTIAGO 12/17/16 Hydrocodone/Acetaminophen ([place] 10-325 Tablet) 1 Each Tablet, 1 TAB PO Q6H Y for PAIN, #20 TAB Prov:ORAL CURRY DO 12/13/16 Ciprofloxacin Hcl* (Ciprofloxacin Hcl*) 500 Mg Tablet, 500 MG PO BID for 10 Days , TAB Prov:JIMENA CURRYS A. DO 12/13/16 Tamsulosin Hcl* (Flomax*) 0.4 Mg Cap.er.24h, 0.4 MG PO DAILY, #10 CAP Prov:ORAL CURRY DO 12/13/16 Ibuprofen* (Motrin*) 400 Mg Tab, 400 MG PO Q6, #30 TAB Prov:ABEL BENJAMIN PA-C 10/31/16 Cephalexin* (Keflex*) 500 Mg Capsule, 500 MG PO QID for 7 Days, CAP Prov:ABEL BENJAMIN LISA 10/31/16 Reported Medications Doxycycline Hyclate (Doxycycline Hyclate) 100 Mg Capsule., 1 BID 06/27/13 Procedures Procedures RESULTS FROM LAST VISIT: RADIOLOGY PROCEDURE: CT abdomen and pelvis with. contrast. CLINICAL INDICATION: Hematuria. Back pain. TECHNIQUE: IV contrast enhanced CT examination of the abdomen and pelvis, with axial, sagittal and coronal reformatted images. 100 cc Isovue 300 nonionic IV contrast were employed. Automated dose exposure control was employed. CTDI: 9 mGy and DLP: 409.82 mGy-cm. COMPARISON: None. FINDINGS: CT abdomen: The lung bases are clear. The heart size is normal, without pericardial thickening or effusion. The liver is normal in size and density without focal mass or intrahepatic biliary dilatation. The spleen is normal in size and homogeneous in density. The stomach is partially collapsed, but is grossly unremarkable. The pancreas as visualized is normal. The gallbladder and biliary tree are unremarkable and there is no evidence for biliary dilatation. The adrenal glands are symmetric and normal. There is a 6 x 3 x 3 mm calculus at the right ureteral pelvic junction, and there is mild right hydronephrosis. Findings are compatible with obstructive uropathy. No additional obstructive uropathy is identified. The aorta is of normal caliber. There is no retroperitoneal lymphadenopathy. The mookie hepatis region is clear. The bowel and mesentery, as visualized, are equally unremarkable. CT pelvis: The small bowel loops situated within the pelvis are unremarkable. The pelvic organs are normal. The pelvic sidewalls and inguinal regions are clear. The sigmoid colon and rectum are all unremarkable. No mass, lymphadenopathy, or free fluid is seen. No acute inflammation is seen. The appendix is unremarkable. The surrounding osseous structures are remarkable for mild degenerative spondylosis of the spine. No osteolytic or osteoblastic lesion is detected. IMPRESSION: 1. 6 x 3 x 3 mm calculus at the right ureteral pelvic junction. 2.. There is mild right hydronephrosis compatible with obstructive uropathy. 3. Otherwise, no acute process in the abdomen EMILY BUI MD Dec 18, 2016 00:38
[2016-12-18] MEDS ORDERED: ONDANSETRON (ODT) 4 MG TAB ODT PRN (01:00)
[2016-12-18] MEDS ORDERED: NACL 0.9% 3 ML SYG IV SCH (01:00)
[2016-12-18] MEDS: OXYCODONE/ACETAMINOPHEN (5/325) TAB PO PRN ×3 (01:05→10:17)
[2016-12-18] MEDS: IBUPROFEN 600 MG TAB PO SCH ×3 (06:05→21:08)
[2016-12-18] MEDS: CIPROFLOXACIN 500 MG TAB PO SCH ×2 (06:05→18:19)
[2016-12-18] MEDS ORDERED: morphine 2 MG INJ IV PRN (08:00)
[2016-12-18 08:32] VITALS: BP 88/57; RESP 18
[2016-12-18] MEDS ORDERED: METOCLOPRAMIDE 10 MG INJ IV PRN (09:00)
[2016-12-18] MEDS: CEFTRIAXONE 1 GM/50 ML (PMX) 50 ML IVPB SCH (10:21)
[2016-12-18] MEDS ORDERED: morphine 4 MG/ML VIAL IV PRN (10:30)
[2016-12-18] MEDS: SOD CHLORIDE 0.9% 1,000 ML IV SCH (18:19)
--- NOTE | 2016-12-18 19:28 | RADRPT ---
PROCEDURE: Retroperitoneal US. CLINICAL INDICATION: Pain, hydronephrosis TECHNIQUE: Multiple sonographic images of the kidneys and retroperitoneum were obtained. The imag es were reviewed on a PACS workstation. COMPARISON: 12/13/2016, 01/17/2014 FINDINGS: The kidneys are normal in size, contour, cortical thickness and cortical echogenicity. The right kidney measures 11.7 cm. The left kidney measures 11.4 cm. No kidney stones are visualized. There is mild right-sided hydronephrosis. There is no evidence of left-sided hydronephrosis. The urinary bladder is not visualized. RPTAT: AA IMPRESSION: Mild right-sided hydronephrosis. .David Crump MD, MD Date Time Electronically viewed and signed by .David Crump MD, on 12/18/2016 19:28 .S/
[2016-12-18 19:59] VITALS: BP 98/55; RESP 18
[2016-12-18] MEDS ORDERED: TAMSULOSIN (SR) 0.4 MG CAP PO SCH (21:00)
[2016-12-19] MEDS: SOD CHLORIDE 0.9% 1,000 ML IV SCH (03:10)
[2016-12-19 05:02] LABS: ADD SCAN DIFF NO
[2016-12-19 05:17] LABS: BASOPHILS % 0.4 % (0.0-2.0); EOSINOPHILS # 0.2 10^3/ul (0.0-0.5); EOSINOPHILS % 2.2 % (0.0-7.0); HEMATOCRIT 35.1 % (37.0-47.0); HEMOGLOBIN 11.8 g/dl (12.0-16.0); LYMPHOCYTES # 2.2 10^3/ul (0.8-2.9); LYMPHOCYTES % 32.6 % (15.0-51.0); MEAN CORPUSCULAR HEMOGLOBIN 30.5 pg (29.0-33.0); MEAN CORPUSCULAR HGB CONC 33.6 g/dl (32.0-37.0); MEAN CORPUSCULAR VOLUME 90.7 fl (82.0-101.0); MEAN PLATELET VOLUME 10.6 fl (7.4-10.4); MONOCYTE # 0.5 10^3/ul (0.3-0.9); MONOCYTES % 7.6 % (0.0-11.0); NEUTROPHIL # 3.8 10^3/ul (1.6-7.5); NEUTROPHILS % 56.9 % (39.0-77.0); PLATELET COUNT 194 10^3/UL (140-415); RED BLOOD COUNT 3.87 10^6/ul (4.20-5.40); RED CELL DISTRIBUTION WIDTH 12.7 % (11.5-14.5); WHITE BLOOD COUNT 6.7 10^3/ul (4.8-10.8)
[2016-12-19] MEDS: CIPROFLOXACIN 500 MG TAB PO SCH (05:23)
[2016-12-19] MEDS: IBUPROFEN 600 MG TAB PO SCH (05:23)
[2016-12-19 05:25] LABS: ALBUMIN 3.1 g/dl (3.3-4.9); PHOSPHORUS 2.4 mg/dl (2.5-4.9)
[2016-12-19 05:26] LABS: POTASSIUM 3.6 mmol/L (3.5-5.1)
[2016-12-19 05:28] LABS: ALBUMIN/GLOBULIN RATIO 1.1; BILIRUBIN,INDIRECT 0.1 mg/dl (0-1.1); BILIRUBIN,TOTAL 0.1 mg/dl (0.2-1.3); CREATININE 0.56 mg/dl (0.44-1.00); TOTAL PROTEIN 5.9 g/dl (6.1-8.1)
[2016-12-19 05:29] LABS: CALCIUM 7.9 mg/dl (8.4-10.2)
[2016-12-19 07:52] VITALS: BP 102/56; RESP 18
--- NOTE | 2016-12-19 09:46 | PDOCDIS ---
Discharge Instructions DIAGNOSIS Discharge Diagnosis: Right pyelonephritis. CONDITION Patient Condition: Stable HOME CARE INSTRUCTIONS: Diet Instructions: Regular OTHER ORDERS: Other Orders: 1. Regular diet as tolerated. Drink plenty of water. 2. Continue antibiotics as per prescription. 3. Follow-up with your primary care physician in 2 weeks. If you do not have a primary care physician, please call Dr. Troy Calvo's office. 4. Resume activities as tolerated. FREDDY DAVE NP Dec 19, 2016 09:46
[2016-12-19] MEDS ORDERED: AMO500 PO (09:51)
[2016-12-19] MEDS ORDERED: TRAM-40 PO (09:53)
[2016-12-19] MEDS: CEFTRIAXONE 1 GM/50 ML (PMX) 50 ML IVPB SCH (09:54)
--- NOTE | 2016-12-19 10:46 | DS ---
DATE OF ADMISSION: 12/17/2016 DATE OF DISCHARGE: 12/19/2016 FINAL DIAGNOSES: 1. Right-sided pyelonephritis. 2. History of nephrolithiasis. No evidence of current nephrolithiasis. HOSPITAL COURSE: This is a 31-year-old female with a known history of right- sided nephrolithiasis who presented to the emergency room with 2 hours of worsening right flank pain radiating to the right groin, with associated 2 episodes of nonbilious, nonbloody emesis. There were no reported fever, diarrhea, cough, or shortness of breath. The patient had a CT scan of the abdomen and pelvis that was done on her prior visit to [facility] on 12/13/2016 that showed a 6 x3 x 3 mm calculus in the right ureteropelvic junction. At that time, there was also evidence of mild right hydronephrosis compatible with obstructive uropathy. Provided the patient's history of present illness, a clinical decision was made to admit the patient to inpatient setting to have her further evaluated. The patient was admitted to inpatient medical/surgical floor. The patient was started on empiric antibiotics. The patient was started on IV hydration. The patient was continued on Flomax. Urology panel was consulted for this patient. Dr. Solorzano was correction officer head, and as per the conversation od Dr. Solorzano with the admitting physician, this patient can be continued on Flomax, and the patient can be seen as an outpatient at Dr. Solorzano's office. Nevertheless, the patient underwent a renal ultrasound that showed no evidence of any renal stones, but mild right-sided hydronephrosis. The patient's urine culture was positive for Streptococcus agalactiae. The patient's symptomatology improved throughout hospital course. The patient remained afebrile. The patient did not have any more episodes of vomiting. The patient's pain has almost resolved. Hence, the patient is stable to be discharged home. The patient denied any complaints at the time of discharge. DISCHARGE DISPOSITION/PLAN: The patient will be discharged home today. She was instructed to follow a regular diet as tolerated and to hydrate herself adequately. She was instructed to take antibiotics as per prescription. The patient was instructed to follow up with her primary care physician in 2 weeks, and if she does not have a primary care physician to please call Dr. Troy Calvo 's office. The patient was instructed to resume activities as tolerated. The patient verbalized understanding of her discharge instructions. CONDITION AT DISCHARGE: Stable. DISCHARGE PHYSICAL EXAMINATION: VITAL SIGNS: Temperature 98.1, pulse rate 81, respiratory rate 18, blood pressure 102/56, oxygen saturation 97% on room air. GENERAL: This is a well-built, well-nourished female lying in bed in no apparent distress. HEENT: Head normocephalic and atraumatic. Eyes: Anicteric sclerae. Conjunctivae clear. ENT: Nasal septum is midline. Oral mucosa is moist. NECK: Supple. No JVD noticed. RESPIRATORY: Bilaterally clear to auscultation. No adventitious breath sounds heard. No use of accessory muscles of respiration. CARDIAC: Regular rate and rhythm. No murmurs heard. ABDOMEN: Soft, nontender and nondistended. Bowel sounds positive in all 4 quadrants. GENITOURINARY: No CVA tenderness. EXTREMITIES: No cyanosis, no clubbing, no edema. Peripheral pulses palpable. NEUROLOGIC: The patient is awake, alert, and oriented. Cranial nerves are grossly intact. DISCHARGE MEDICATIONS: 1. Amoxicillin 500 mg p.o. q.8 h. x7 days. 2. Tramadol 50 mg p.o. q.8 h. p.r.n. pain (10 tablets). 3. Zofran 4 mg p.o. q.6 h. p.r.n. nausea and vomiting (10 tablets). The case and management of this patient was fully discussed with Dr. Apodaca. Approximately 35 minutes was spent on coordinating the discharge on this patient. FREDDY APODACA MD, AM/ARCHANA Conf#: [id number] DID#: [id number] MTDD
== END 2016-12-19 10:35 | disposition home or self-care (01) ==
LOC: FTE 18:06 → MS1 21:39
PROVIDERS: ADMIT Family Medicine; ATTEND Family Medicine
DX: N12 Tubulo-interstitial nephritis, not specified as acute or chronic (principal); N23 Unspecified renal colic; N39.0 Urinary tract infection, site not specified; E87.6 Hypokalemia; N20.1 Calculus of ureter; N13.30 Unspecified hydronephrosis; B95.0 Streptococcus, group A, as the cause of diseases classified elsewhere
CPT/HCPCS: 76775; 80048; 80053; 81001; 83735; 84100; 85025; 87086; J0696; J1885; J2270; J2405; J2765; J3480; J7030; Z7500; Z7610; 81003; 96361; 96365; 96366; 96374; 96375; 96376; G0378

== ENCOUNTER 2017-05-19 19:44 | Emergency (ER) | payer MEDICAID ==
[~2017-05-19] VITALS: Ht 162.6 cm; Wt 56.5 kg
[~2017-05-19 19:44] MED LIST changes: +AMO500 PO; -CEPH-443 PO; -CIPR500T4 PO; -DOXY100C47; -HYDR-902 PO; -IBUP400T22 PO; +ONDA4TAB14 PO; -TAMS-14 PO; +TRAM-40 PO
[2017-05-19 19:48] VITALS: Ht 162.6 cm; Wt 56.5 kg
[2017-05-19] MEDS ORDERED: LIDOCAINE/MYLANTA 40 ML BTL PO ONE (20:30)
--- NOTE | 2017-05-19 20:36 | ERD ---
ER Documentation Chief Complaint Date/Time DATE: 05/19/17 TIME: 20:31 Chief Complaint abd pain and bloating x 5 months. Denies n/v/d. HPI 31-year-old female presents here in emergency department for complaint of epigastric pain and abdominal bloating on and off for 5 months after eating. Patient's complaining of epigastric pain, burning pain 6/10 scale, is accompanied with bloating. Patient did not take any medications to symptoms. Patient denies any fever or chills. Patient denies any nausea or vomiting. ROS All systems reviewed and are negative except as per history of present illness. Medications Home Meds Active Scripts Tramadol Hcl* (Ultram*) 50 Mg Tablet, 50 MG PO Q8 for PAIN, #10 TAB Prov:FREDDY DAVE NP 12/19/16 Amoxicillin* (Amoxicillin*) 500 Mg Cap, 500 MG PO Q8 for 7 Days, #30 CAP Prov:FREDDY DAVE NP 12/19/16 Ondansetron (Ondansetron Odt) 4 Mg Tab.rapdis, 4 MG PO Q6H Y for NAUSEA AND/OR VOMITING, #15 TAB 0 Refills Prov:AURORA DE SANTIAGO 12/17/16 Allergies Allergies: Coded Allergies: No Known Allergy (Verified , 05/19/17) PMhx/Soc Medical and Surgical Hx: pt denies Medical Hx History of Surgery: Yes (c section x2) Anesthesia Reaction: No Hx Neurological Disorder: No Hx Respiratory Disorders: No Hx Cardiac Disorders: No Hx Psychiatric Problems: No Hx Miscellaneous Medical Probl: No Hx Alcohol Use: No Hx Substance Use: No Hx Tobacco Use: No FmHx Family History: No coronary disease, No diabetes, No other Physical Exam Vitals Vital Signs Date Time Temp Pulse Resp B/P Pulse Ox O2 Delivery O2 Flow Rate FiO2 05/19/17 19:48 98.4 72 18 136/75 100 Physical Exam GENERAL: The patient is well developed and appropriate for usual state of health, in no apparent distress. CHEST: Clear to auscultation bilaterally. There are no rales, wheezes or rhonchi. HEART: Regular rate and rhythm. No murmurs, clicks, rubs or gallops. No S3 or S4. ABDOMEN: Soft, nontender and nondistended. Good bowel sounds. No rebound or guarding. No gross peritonitis. No gross organomegaly or masses. No Cardona sign or McBurney point tenderness. BACK: No midline or flank tenderness. EXTREMITIES: Equal pulses bilaterally. There is no peripheral clubbing, cyanosis or edema. No focal swelling or erythema. Full range of motion. Grossly neurovascularly intact. NEURO: Alert and oriented. Cranial nerves 2-12 intact. Motor strength in all 4 extremities with 5/5 strength. Sensation grossly intact. Normal speech and gait. SKIN: There is no apparent rash or petechia. The skin is warm and dry. HEMATOLOGIC AND LYMPHATIC: There is no evidence of excessive bruising or lymphedema. No gross cervical, axillary, or inguinal lymphadenopathy. Result Diagram: 05/19/17202405/19/172024 Results 24 hrs Laboratory Tests Test 05/19/17 20:20 05/19/17 20:25 Urine Color YELLOW Urine Clarity CLOUDY Urine pH 7.0 Urine Specific [place] 1.025 Urine Ketones NEGATIVEmg/dL Urine Nitrite NEGATIVEmg/dL Urine Bilirubin NEGATIVEmg/dL Urine Urobilinogen NEGATIVEmg/dL Urine Leukocyte Esterase TRACELeu/ul Urine Microscopic RBC 2/HPF Urine Microscopic WBC 13/HPF Urine Squamous Epithelial Cells MODERATE/HPF Urine Amorphous Crystals FEW/HPF Urine Hemoglobin 2+mg/dL Urine Glucose NEGATIVEmg/dL Urine Total Protein NEGATIVEmg/dl White Blood Count 10.710^3/ul Red Blood Count 4.8010^6/ul Hemoglobin 14.4g/dl Hematocrit 42.4% Mean Corpuscular Volume 88.3fl Mean Corpuscular Hemoglobin 30.0pg Mean Corpuscular Hemoglobin Concent 34.0g/dl Red Cell Distribution Width 12.4% Platelet Count 57143^3/UL Mean Platelet Volume 9.9fl Neutrophils % 55.6% Lymphocytes % 33.6% Monocytes % 7.4% Eosinophils % 2.2% Basophils % 0.4% Nucleated Red Blood Cells % 0.0/100WBC Neutrophils # 5.910^3/ul Lymphocytes # 3.610^3/ul Monocytes # 0.810^3/ul Eosinophils # 0.210^3/ul Basophils # 0.010^3/ul Nucleated Red Blood Cells # 0.010^3/ul Sodium Level 145mmol/L Potassium Level 3.9mmol/L Chloride Level 106mmol/L Carbon Dioxide Level 24mmol/L Anion Gap 19 Blood Urea Nitrogen 14mg/dl Creatinine 0.66mg/dl Glucose Level 89mg/dl Calcium Level 9.4mg/dl Total Bilirubin 0.1mg/dl Direct Bilirubin 0.00mg/dl Indirect Bilirubin 0.1mg/dl Aspartate Amino Transf (AST/SGOT) 19IU/L Alanine Aminotransferase (ALT/SGPT) 30IU/L Alkaline Phosphatase 77IU/L Total Protein 8.0g/dl Albumin 4.6g/dl Globulin 3.40g/dl Albumin/Globulin Ratio 1.35 Lipase 158U/L Current Medications Medications (Trade) Dose Ordered Sig/Don Route PRN Reason Start Time Stop Time Status Last Admin Dose Admin Miscellaneous Medication (Gi Cocktail (2)) 40 ml ONCE ONCE PO 05/19/17 20:30 05/19/17 20:31 DC 05/19/17 20:32 GI cocktail was given here in emergency department, verbalized feeling much better afterwards. PROCEDURE: US Abdomen (right upper quadrant). CLINICAL INDICATION: Abdominal pain. TECHNIQUE: Multiple real-time longitudinal and transverse images of the right upper quadrant of the abdomen were acquired utilizing a curved array transducer. Images were reviewed on a high-resolution PACS workstation. COMPARISON: Abdomen ultrasound 12/18/2016. Abdomen pelvis CT 12/13/2016. FINDINGS: The liver is normal in size and echogenicity without focal mass or intrahepatic biliary dilatation. The gallbladder is contracted. There is no pericholecystic fluid or gallstones. The sonographic Cardona sign is negative. No intra or extrahepatic biliary dilatation is seen. The common bile duct measures 3.3 mm in maximal dimension. The visualized portions of the pancreas are unremarkable with obscuration of the tail of the pancreas. No free fluid is identified. The right kidney measures 9.1 cm in length. There is normal echogenicity within the right kidney. There is no perinephric fluid collection. No hydronephrosis, mass, or calculus is seen. IMPRESSION: 1. Unremarkable right upper quadrant ultrasound. RPTAT: HFN .Nasreen Best MD, Date Time Electronically viewed and signed by .Nasreen Best MD, on 05/19/2017 21: 07 .N/ CC: JUAN VERA NP Procedures/MDM Medical Decision Making: Patient's symptoms of abdominal pain and bloating after eating nonspecific at this time, possible fasciitis, or dyspepsia. There is low suspicion for abdominal emergencies at this time. Patients abdominal exam is normal at this time. Patients radiology exam does not show any abdominal emergencies at this time. There is low suspicion for appendicitis, cholecystitis, abdominal aortic aneurysms or peritonitis at this time. There is low suspicion for sepsis. Patient appears well and is hemodynamically stable. Disposition: Home. Condition: Stable Prescription omeprazole, Zofran, tramadol, Mylanta Instructions: Patient is advised to take medications as prescribed. Patient is advised to rest, increase fluid intake and do brat diet for next 1-2 days and progress as tolerated. Patient is advised that if symptoms are worse, severe abdominal pain, uncontrolled vomiting, high fever, severe flank pain, worst signs and symptoms, to return to the emergency department immediately. Otherwise, patient can follow up with primary care doctor in 5-7 days. Departure Diagnosis: Primary Impression: Abdominal pain Abdominal location: epigastric Qualified Code: R10.13 - Epigastric pain Condition: Stable Patient Instructions: Epigastric Pain (Uncertain Cause) Additional Instructions: Patient is advised to take medications as prescribed. Patient is advised to rest , increase fluid intake and do brat diet for next 1-2 days and progress as tolerated. Patient is advised that if symptoms are worse, severe abdominal pain , uncontrolled vomiting, high fever, severe flank pain, worst signs and symptoms , to return to the emergency department immediately. Otherwise, patient can follow up with primary care doctor in 5-7 days. JUAN VERA NP May 19, 2017 20:36
[2017-05-19 20:44] LABS: BASOPHILS % 0.4 % (0.0-2.0); EOSINOPHILS # 0.2 10^3/ul (0.0-0.5); EOSINOPHILS % 2.2 % (0.0-7.0); HEMATOCRIT 42.4 % (37.0-47.0); HEMOGLOBIN 14.4 g/dl (12.0-16.0); LYMPHOCYTES # 3.6 10^3/ul (0.8-2.9); LYMPHOCYTES % 33.6 % (15.0-51.0); MEAN CORPUSCULAR VOLUME 88.3 fl (82.0-101.0); MEAN PLATELET VOLUME 9.9 fl (7.4-10.4); MONOCYTE # 0.8 10^3/ul (0.3-0.9); MONOCYTES % 7.4 % (0.0-11.0); NEUTROPHIL # 5.9 10^3/ul (1.6-7.5); NEUTROPHILS % 55.6 % (39.0-77.0); PLATELET COUNT 273 10^3/UL (140-415); RED CELL DISTRIBUTION WIDTH 12.4 % (11.5-14.5); WHITE BLOOD COUNT 10.7 10^3/ul (4.8-10.8)
[2017-05-19 21:06] LABS: ALBUMIN 4.6 g/dl (3.3-4.9); ALBUMIN/GLOBULIN RATIO 1.35; BILIRUBIN,INDIRECT 0.1 mg/dl (0-1.1); BILIRUBIN,TOTAL 0.1 mg/dl (0.2-1.3); CALCIUM 9.4 mg/dl (8.4-10.2); CREATININE 0.66 mg/dl (0.44-1.00); POTASSIUM 3.9 mmol/L (3.5-5.1)
--- NOTE | 2017-05-19 21:08 | RADRPT ---
PROCEDURE: US Abdomen (right upper quadrant). CLINICAL INDICATION: Abdominal pain. TECHNIQUE: Multiple real-time longitudinal and transverse images of the right upper quadrant of th e abdomen were acquired utilizing a curved array transducer. Images were reviewed on a high-resoluti on PACS workstation. COMPARISON: Abdomen ultrasound 12/18/2016. Abdomen pelvis CT 12/13/2016. FINDINGS: The liver is normal in size and echogenicity without focal mass or intrahepatic biliary dilatation. The gallbladder is contracted. There is no pericholecystic fluid or gallstones. The sonographic Mu rphy sign is negative. No intra or extrahepatic biliary dilatation is seen. The common bile duct me asures 3.3 mm in maximal dimension. The visualized portions of the pancreas are unremarkable with o bscuration of the tail of the pancreas. No free fluid is identified. The right kidney measures 9.1 cm in length. There is normal echogenicity within the right kidney. There is no perinephric fluid collection. No hydronephrosis, mass, or calculus is seen. IMPRESSION: 1. Unremarkable right upper quadrant ultrasound. RPTAT: HFN .Nasreen Best MD, MD Date Time Electronically viewed and signed by .Nasreen Best MD, MD on 05/19/2017 21:07 .N/
[2017-05-19 21:24] LABS: ADD UMIC YES; UR AMORPHOUS CRYSTAL FEW /HPF (NONE SEEN); UR ASCORBIC ACID NEGATIVE (NEGATIVE); UR BILIRUBIN (Dip) NEGATIVE (NEGATIVE); UR BLOOD (Dip) 2+ mg/dL (NEGATIVE); UR CLARITY CLOUDY (CLEAR); UR COLOR YELLOW (YELLOW); UR GLUCOSE (Dip) NEGATIVE (NEGATIVE); UR KETONES (Dip) NEGATIVE (NEGATIVE); UR LEUKOCYTE ESTERASE (Dip) TRACE Leu/ul (NEGATIVE); UR NITRITE (Dip) NEGATIVE (NEGATIVE); UR RBC 2 /HPF (0-5); UR SPECIFIC GRAVITY (Dip) 1.025 (1.003-1.030); UR SQUAMOUS EPITHELIAL CELL MODERATE /HPF (FEW); UR TOTAL PROTEIN (Dip) NEGATIVE (NEGATIVE); UR UROBILINOGEN (Dip) NEGATIVE (NEGATIVE)
[2017-05-19] MEDS ORDERED: TRAM50TA2 PO (21:28)
[2017-05-19] MEDS ORDERED: OMEP20CA16 PO (21:28)
[2017-05-19] MEDS ORDERED: MAG-19 PO (21:28)
[2017-05-19] MEDS ORDERED: ONDA4TAB14 PO (21:28)
== END 2017-05-19 21:38 | disposition home or self-care (01) ==
LOC: FTE 19:44
DX: R10.13 Epigastric pain (principal)
CPT/HCPCS: 36415; 76705; 80053; 81001; 83690; 85025; Z7502; Z7610

== ENCOUNTER 2018-04-14 10:27 | Emergency (ER) | END 2018-04-14 13:26 | disposition home or self-care (01) ==

== ENCOUNTER 2018-09-28 20:16 | Emergency (ER) | END 2018-09-29 02:03 | disposition home or self-care (01) ==

== ENCOUNTER 2018-10-04 20:27 | Emergency (ER) | END 2018-10-05 00:04 | disposition home or self-care (01) ==

== ENCOUNTER 2018-10-11 19:41 | Emergency (ER) | payer MEDICAID ==
[~2018-10-11] VITALS: Wt 60.1 kg
[~2018-10-11 19:41] MED LIST changes: +ACET500C5 PO; -AMO500 PO; +AMOX500C2 PO; +CEPH-443 PO; +DOCU-144 PO; +HYDR-4011 PO; +IBUP-1542 PO; +MAG-19 PO; +NITR-58 PO; +OMEP20CA16 PO; +ONDA8TAB14 PO; -TRAM-40 PO; +TRAM50TA PO; +TRAM50TA2 PO
[2018-10-11] MEDS ORDERED: ACETAMINOPHEN 500 MG TAB PO STA (20:23)
[2018-10-11] MEDS ORDERED: METOCLOPRAMIDE 10 MG INJ IV ONE (20:30)
[2018-10-11] MEDS ORDERED: SOD CHLORIDE 0.9% 1,000 ML IV ONE (20:30)
--- NOTE | 2018-10-11 20:37 | ERD ---
ER Documentation Chief Complaint Chief Complaint bib self, cc: epigastric pain x 2 days, n/v x 6 today, 10 wks preg HPI This is a 33-year-old female presents the emergency department with complaints of epigastric pain, pelvic pain for about 2 days. Also complains of nausea and vomiting with nonbilious and nonbloody emesis 3 times today. Also stated that she was here 2 weeks ago for the same complaint and was informed that she has UTI. Stated that she is 10 weeks . LMP: 08/08/2018. BERONICA: May 18, 2019. A0. Denies headache, head injury, loss of consciousness, dizziness, neck pain, neck stiffness, throat pain, difficulty swallowing, difficulty breathing lying flat, shoulder pain, chest pain, back pain, constipation, diarrhea, urinary symptoms, loss of bowel and bladder control, trauma, injury, falls, difficulty walking due to pain, numbness or tingling sensation, calf pain, recent travel, recent major surgery in the last 3 weeks, calf pain, recent long travel, recent exposure to any illness, recent antibiotic use in the last 3 months, fever, chills, seizures. Past medical history: Denies. Medication: Surgical history: x2. Social: Denies smoking, use of alcoholic beverages, use of illegal drugs. ROS All systems reviewed and are negative except as per history of present illness. Medications Home Meds Active Scripts Vit No.124/Iron/FA ( Vitamin Tablet) 1 Each Tablet, 1 EACH PO DAILY, #30 TAB Prov:SERENA JIMENEZ 10/11/18 Metoclopramide* (Reglan*) 10 Mg Tablet, 10 MG PO Q6 PRN for NAUSEA AND/OR VOMITING, #20 TAB Prov:SERENA JIMENEZ 10/11/18 Acetaminophen* (Tylophen*) 500 Mg Capsule, 1 CAP PO Q6H PRN for PAIN AND OR ELEVATED TEMP, #20 CAP Prov:SERENA JIMENEZ 10/11/18 Ondansetron (Ondansetron Odt) 8 Mg Tab.rapdis, 8 MG PO Q6H PRN for NAUSEA AND/OR VOMITING, #10 TAB Prov:MATEO FLORES MD 10/04/18 Nitrofurantoin Monohyd Macrocr* (Macrobid*) 100 Mg Capsr, 100 MG PO BID for 7 Days, CAP Prov:MATEO FLORES MD 10/04/18 Acetaminophen* (Tylophen*) 500 Mg Capsule, 1 CAP PO Q6H PRN for PAIN AND OR ELEVATED TEMP, #20 CAP Prov:ABEL BENJAMIN PA-C 09/29/18 Cephalexin* (Keflex*) 500 Mg Capsule, 500 MG PO QID for 7 Days, CAP Prov:ABEL BENJAMIN 09/29/18 Docusate Sodium* (Colace*) 100 Mg Capsule, 100 MG PO TID, #30 CAP Prov:ILENE GILLESPIE PA-C 04/14/18 Hydrocodone/Acetaminophen ([place] 5-325 Tablet) 1 Each Tablet, 1 TAB PO Q6H PRN for PAIN, #7 TAB Prov:ILENE GILLESPIE PA-C 04/14/18 Ondansetron (Ondansetron Odt) 4 Mg Tab.rapdis, 4 MG PO Q6H PRN for NAUSEA AND/OR VOMITING, #10 TAB Prov:ILENE GILLESPIE PA-C 04/14/18 Ibuprofen* (Motrin*) 600 Mg Tab, 600 MG PO Q6, #30 TAB Prov:ILENE GILLESPIE PA-C 04/14/18 Tramadol HCl (Tramadol HCl) 50 Mg Tablet, 50 MG PO Q6 for SEVERE PAIN LEVEL 7- 10, #20 TAB Prov:JUAN VERA NP 05/19/17 Ondansetron (Ondansetron Odt) 4 Mg Tab.rapdis, 4 MG PO Q8 PRN for NAUSEA AND/OR VOMITING, #30 TAB Prov:JUAN VERA NP 05/19/17 Omeprazole* (Omeprazole*) 20 Mg Capsule.dr, 20 MG PO DAILY, #30 Prov:JUAN VERA NP 05/19/17 Magaldrate/Simethicone* (Mylanta*) 355 Ml Susp, 30 ML PO QID PRN for GASTROINTESTINAL UPSET, #1 BOTTLE Prov:JUAN VERA NP 05/19/17 Tramadol Hcl* (Ultram*) 50 Mg Tablet, 50 MG PO Q8 for PAIN, #10 TAB Prov:FERDDY DAVE NP 12/19/16 Amoxicillin* (Amoxicillin*) 500 Mg Cap, 500 MG PO Q8 for 7 Days, #30 CAP Prov:FREDDY DAVE [employer] 12/19/16 Ondansetron (Ondansetron Odt) 4 Mg Tab.rapdis, 4 MG PO Q6H PRN for NAUSEA AND/OR VOMITING, #15 TAB 0 Refills Prov:AURORA DE SANTIAGO 12/17/16 Allergies Allergies: Coded Allergies: No Known Allergy (Verified , 04/14/18) PMhx/Soc History of Surgery: Yes (c section x2) Anesthesia Reaction: No Hx Neurological Disorder: No Hx Respiratory Disorders: No Hx Cardiac Disorders: No Hx Psychiatric Problems: No Hx Miscellaneous Medical Probl: No Hx Alcohol Use: No Hx Substance Use: No Hx Tobacco Use: No Smoking Status: Never smoker Physical Exam Vitals Vital Signs Date Temp Pulse Resp B/P (MAP) Pulse Ox O2 O2 Flow FiO2 Time Delivery Rate 10/12/18 98.1 86 20 123/72 98 Room Air 00:07 (89) 10/11/18 98.3 69 19 121/62 100 19:44 (81) Physical Exam Const: No acute distress Head: Atraumatic Eyes: Normal Conjunctiva ENT: Normal External Ears, Nose and Mouth. Neck: Full range of motion. No meningismus. Resp: Clear to auscultation bilaterally Cardio: Regular rate and rhythm, no murmurs Abd: Soft, non tender, non distended. Normal bowel sounds. Right upper abdominal tenderness to light and deep palpation. No CVA tenderness. There is no right lower abdominal tenderness. Skin: No petechiae or rashes. Color appears normal for ethnicity. No signs of severe dehydration. Back: No midline or flank tenderness Ext: No cyanosis, or edema Neur: Awake and alert. No neurological deficits. Psych: Normal Mood and Affect Result Diagram: 10/11/18204310/11/182043 Results 24 hrs Laboratory Tests Test 10/11/18 20:44 White Blood Count 15.9 10^3/ul Red Blood Count 4.60 10^6/ul Hemoglobin 13.9 g/dl Hematocrit 41.1 % Mean Corpuscular Volume 89.3 fl Mean Corpuscular Hemoglobin 30.2 pg Mean Corpuscular Hemoglobin Concent 33.8 g/dl Red Cell Distribution Width 12.5 % Platelet Count 303 10^3/UL Mean Platelet Volume 9.5 fl Immature Granulocytes % 0.600 % Neutrophils % 72.9 % Lymphocytes % 19.9 % Monocytes % 5.9 % Eosinophils % 0.4 % Basophils % 0.3 % Nucleated Red Blood Cells % 0.0 /100WBC Immature Granulocytes # 0.090 10^3/ul Neutrophils # 11.6 10^3/ul Lymphocytes # 3.2 10^3/ul Monocytes # 0.9 10^3/ul Eosinophils # 0.1 10^3/ul Basophils # 0.0 10^3/ul Nucleated Red Blood Cells # 0.0 10^3/ul Urine Color YELLOW Urine Clarity CLOUDY Urine pH 7.0 Urine Specific [place] 1.019 Urine Ketones NEGATIVE mg/dL Urine Nitrite NEGATIVE mg/dL Urine Bilirubin NEGATIVE mg/dL Urine Urobilinogen NEGATIVE mg/dL Urine Leukocyte Esterase NEGATIVE [place]/ul Urine Microscopic RBC 2 /HPF Urine Microscopic WBC 5 /HPF Urine Squamous Epithelial Cells FEW /HPF Urine Amorphous Crystals FEW /HPF Urine Bacteria FEW /HPF Urine Mucus FEW /HPF Urine Hemoglobin 1+ mg/dL Urine Glucose NEGATIVE mg/dL Urine Total Protein NEGATIVE mg/dl Sodium Level 139 mmol/L Potassium Level 3.8 mmol/L Chloride Level 106 mmol/L Carbon Dioxide Level 24 mmol/L Anion Gap 9 Blood Urea Nitrogen 10 mg/dl Creatinine 0.47 mg/dl Est Glomerular Filtrat Rate mL/min > 60 mL/min Glucose Level 95 mg/dl Calcium Level 9.1 mg/dl Total Bilirubin 0.0 mg/dl Direct Bilirubin 0.00 mg/dl Indirect Bilirubin 0.0 mg/dl Aspartate Amino Transf (AST/SGOT) 21 IU/L Alanine Aminotransferase (ALT/SGPT) 17 IU/L Alkaline Phosphatase 73 IU/L Total Protein 7.6 g/dl Albumin 4.2 g/dl Globulin 3.40 g/dl Albumin/Globulin Ratio 1.23 Amylase Level 142 U/L Lipase 141 U/L Beta HCG, Quantitative 451404.0 mIU/ml Current Medications Medications Dose Sig/Don Start Time Status Last (Trade) Ordered Route PRN Stop Time Admin Dose Reason Admin Sodium 1,000 ml @ Q1H ONCE 10/11/18 DC 10/11/18 Chloride 1,000 mls/hr IV 20:30 21:02 12/29/18 21:29 10 mg ONCE ONCE 10/11/18 DC Metoclopramid IV 20:30 e HCl 10/11/18 (Reglan) 20:31 500 mg ONCE STAT 10/11/18 DC 10/11/18 Acetaminophen PO 20:23 21:02 (Tylenol 10/11/18 Tab) 20:31 40 ml ONCE ONCE 10/11/18 DC 10/11/18 Miscellaneous PO 23:30 23:41 Medication 10/11/18 (Gi Cocktail 23:31 (2)) Procedures/MDM Diagnostic tests: Urinalysis: Reviewed. Culture urine: Sent. Type and Rh: B+. HCG quantitative: 935314.0 Abdominal ultrasound to rule out gallstones and kidney stones: Mildly contracted gallbladder which is nonspecific and could be due to nonfasting state. The gallbladder is unremarkable in the previous study. Otherwise unremarkable examination as noted above. OB ultrasound: Single live intrauterine with an estimated gestational age of 8 weeks 5 days based on ultrasound measurement. Treatment: Saline lock. Normal saline IV bolus. Reglan IV. Tylenol p.o. Re-evaluation: No episode of emesis here in the emergency department. No abdominal tenderness. Differential diagnosis I have low suspicion for cholecystitis, pancreatitis, nephrolithiasis, pyelonephritis, obstructing kidney stones, septic stone, ectopic , sepsis, hemorrhage. This case was discussed with my supervising physician, Dr. Lance Bowles who agreed my medical decision making. Final diagnosis: Abdominal pain affecting . Prescription: Tylenol. Reglan. Follow-up with OB in the next 24-48 hours. Come back here in the emergency department for any new symptoms or any worsening symptoms. All questions and concerns were answered. Patient and family members verbalized understanding and agreed with plan of care. Hemodynamically stable on discharge. Departure Diagnosis: Primary Impression: Abdominal pain affecting Condition: Stable Additional Instructions: Follow-up with OB in the next 24-48 hours. Come back here in the emergency department for any new symptoms or any worsening symptoms. SERENA JIMENEZ Oct 11, 2018 20:37
[2018-10-11] MEDS ORDERED: ACET500C5 PO (23:04)
[2018-10-11] MEDS ORDERED: PREN-93 PO (23:05)
[2018-10-11] MEDS ORDERED: METO10TA92 PO (23:05)
[2018-10-11] MEDS ORDERED: LIDOCAINE/MYLANTA 40 ML BTL PO ONE (23:30)
[2018-10-12 00:07] VITALS: BP 123/72; PULSE 86; RESP 20
== END 2018-10-12 00:10 | disposition home or self-care (01) ==
LOC: FTE 19:41
DX: O26.891 Other specified pregnancy related conditions, first trimester (principal); R10.9 Unspecified abdominal pain; R10.2 Pelvic and perineal pain; Z3A.08 8 weeks gestation of pregnancy
CPT/HCPCS: 76700; 76801; 80053; 81001; 82150; 83690; 84702; 85025; 86900; 86901; 87086; J2765; J7030; Z7502; Z7610

== ENCOUNTER 2018-10-17 23:47 | Emergency (ER) | payer MEDICAID ==
[~2018-10-17] VITALS: Ht 152.4 cm; Wt 60.2 kg
[~2018-10-17 23:47] MED LIST changes: +METO10TA92 PO; +PREN-93 PO
[2018-10-17 23:51] VITALS: Ht 152.4 cm; Wt 60.2 kg
[2018-10-18] MEDS ORDERED: CEPH-443 PO (04:10)
--- NOTE | 2018-10-18 04:14 | ERD ---
ER Documentation Chief Complaint Chief Complaint 9weeks ,woke up w/clots in her undies HPI 33-year-old female patient with no significant past medical history presents the ED as a with vaginal bleeding and is currently . Patient reports that she noticed some blood clots on her underwear. States that her last menstruation is on August 08, 2018. Denies any dysuria, urgency, frequency, hematuria, nausea, vomiting, diarrhea, neck stiffness, chest pain, shortness of breath. ROS All systems reviewed and are negative except as per history of present illness. Medications Home Meds Active Scripts Cephalexin* (Keflex*) 500 Mg Capsule, 500 MG PO QID for 7 Days, CAP Prov:ABEL BENJAMIN PA-C 10/18/18 Vit No.124/Iron/FA ( Vitamin Tablet) 1 Each Tablet, 1 EACH PO DAILY, #30 TAB Prov:STEPHENSHARLENESERENA 10/11/18 Metoclopramide* (Reglan*) 10 Mg Tablet, 10 MG PO Q6 PRN for NAUSEA AND/OR VOMITING, #20 TAB Prov:PASILABANSERENA F 10/11/18 Acetaminophen* (Tylophen*) 500 Mg Capsule, 1 CAP PO Q6H PRN for PAIN AND OR ELEVATED TEMP, #20 CAP Prov:SERENA JIMENEZ F 10/11/18 Ondansetron (Ondansetron Odt) 8 Mg Tab.rapdis, 8 MG PO Q6H PRN for NAUSEA AND/OR VOMITING, #10 TAB Prov:MATEO FLORES MD 10/04/18 Nitrofurantoin Monohyd Macrocr* (Macrobid*) 100 Mg Capsr, 100 MG PO BID for 7 Days, CAP Prov:MATEO FLORES MD 10/04/18 Acetaminophen* (Tylophen*) 500 Mg Capsule, 1 CAP PO Q6H PRN for PAIN AND OR ELEVATED TEMP, #20 CAP Prov:ABEL BENJAMIN PA-C 09/29/18 Cephalexin* (Keflex*) 500 Mg Capsule, 500 MG PO QID for 7 Days, CAP Prov:ABEL BENJAMIN PA-C 09/29/18 Docusate Sodium* (Colace*) 100 Mg Capsule, 100 MG PO TID, #30 CAP Prov:ILENE GILLESPIE-C 04/14/18 Hydrocodone/Acetaminophen ([place] 5-325 Tablet) 1 Each Tablet, 1 TAB PO Q6H PRN for PAIN, #7 TAB Prov:LOLITA GILLESPIEJOSE G GONZALEZ 04/14/18 Ondansetron (Ondansetron Odt) 4 Mg Tab.rapdis, 4 MG PO Q6H PRN for NAUSEA AND/OR VOMITING, #10 TAB Prov:JOSE MIGUELILENE GONZALEZ 04/14/18 Ibuprofen* (Motrin*) 600 Mg Tab, 600 MG PO Q6, #30 TAB Prov:JOSE MIGUELILENE GONZALEZ 04/14/18 Tramadol HCl (Tramadol HCl) 50 Mg Tablet, 50 MG PO Q6 for SEVERE PAIN LEVEL 7- 10, #20 TAB Prov:JUAN VERA NP 05/19/17 Ondansetron (Ondansetron Odt) 4 Mg Tab.rapdis, 4 MG PO Q8 PRN for NAUSEA AND/OR VOMITING, #30 TAB Prov:JUAN VERA NP 05/19/17 Omeprazole* (Omeprazole*) 20 Mg Capsule.dr, 20 MG PO DAILY, #30 Prov:JUAN VERA NP 05/19/17 Magaldrate/Simethicone* (Mylanta*) 355 Ml Susp, 30 ML PO QID PRN for GASTROINTESTINAL UPSET, #1 BOTTLE Prov:JUAN VERA NP 05/19/17 Tramadol Hcl* (Ultram*) 50 Mg Tablet, 50 MG PO Q8 for PAIN, #10 TAB Prov:FREDDY DAVE NP 12/19/16 Amoxicillin* (Amoxicillin*) 500 Mg Cap, 500 MG PO Q8 for 7 Days, #30 CAP Prov:FREDDY DAVE NP 12/19/16 Ondansetron (Ondansetron Odt) 4 Mg Tab.rapdis, 4 MG PO Q6H PRN for NAUSEA AND/OR VOMITING, #15 TAB 0 Refills Prov:AURORA DE SANTIAGO 12/17/16 Allergies Allergies: Coded Allergies: No Known Allergy (Verified , 04/14/18) PMhx/Soc History of Surgery: Yes () Anesthesia Reaction: No Hx Neurological Disorder: No Hx Respiratory Disorders: No Hx Cardiac Disorders: No Hx Psychiatric Problems: No Hx Miscellaneous Medical Probl: No Hx Alcohol Use: No Hx Substance Use: No Hx Tobacco Use: No Smoking Status: Never smoker FmHx Family History: No diabetes, No coronary disease Physical Exam Vitals Vital Signs Date Temp Pulse Resp B/P (MAP) Pulse Ox O2 O2 Flow FiO2 Time Delivery Rate 10/17/18 97.3 78 18 112/72 98 23:51 (85) Physical Exam Const: [id number], well-nourished. In no acute distress. Head: Atraumatic, normocephalic Eyes: Normal Conjunctiva without injection. No purulent discharge. ENT: Normal external ear, nose. Moist oropharynx without tonsillar exudates. Non-erythematous pharynx. Uvula midline. No drooling. No trismus. Neck: No cervical midline tenderness. Full range of motion. No meningismus. No cervical lymphadenopathy. No JVD. Resp: Clear to auscultation bilaterally. No wheezing, rhonchi, rales, or crack les. No accessory muscle use. No retractions. Cardio: Regular rate and rhythm. No murmurs, rubs or gallops. Abd: Soft, nontender, non distended. Normal bowel sounds. No palpable masses. No rebound tenderness. No guarding. Negative McBurney's point. Negative psoas sign. Negative obturator sign. Skin: No petechiae or rashes Back: No midline tenderness. No CVA tenderness. Ext: No cyanosis, or edema. Neur: Awake and alert. Normal gait. Normal coordination. Psych: Normal Mood and Affect Result Diagram: 10/18/18 0230 Results 24 hrs Laboratory Tests Test 10/18/18 02:30 White Blood Count 12.3 10^3/ul Red Blood Count 4.48 10^6/ul Hemoglobin 13.7 g/dl Hematocrit 40.0 % Mean Corpuscular Volume 89.3 fl Mean Corpuscular Hemoglobin 30.6 pg Mean Corpuscular Hemoglobin Concent 34.3 g/dl Red Cell Distribution Width 12.6 % Platelet Count 276 10^3/UL Mean Platelet Volume 9.7 fl Immature Granulocytes % 0.600 % Neutrophils % 67.9 % Lymphocytes % 23.7 % Monocytes % 6.8 % Eosinophils % 0.7 % Basophils % 0.3 % Nucleated Red Blood Cells % 0.0 /100WBC Immature Granulocytes # 0.070 10^3/ul Neutrophils # 8.4 10^3/ul Lymphocytes # 2.9 10^3/ul Monocytes # 0.8 10^3/ul Eosinophils # 0.1 10^3/ul Basophils # 0.0 10^3/ul Nucleated Red Blood Cells # 0.0 10^3/ul Urine Color YELLOW Urine Clarity TURBID Urine pH 7.0 Urine Specific [place] 1.019 Urine Ketones NEGATIVE mg/dL Urine Nitrite NEGATIVE mg/dL Urine Bilirubin NEGATIVE mg/dL Urine Urobilinogen NEGATIVE mg/dL Urine Leukocyte Esterase NEGATIVE Adrianne/ul Urine Microscopic RBC > 182 /HPF Urine Microscopic WBC 33 /HPF Urine Squamous Epithelial Cells FEW /HPF Urine Bacteria FEW /HPF Urine Mucus FEW /HPF Urine Hemoglobin 3+ mg/dL Urine Glucose NEGATIVE mg/dL Urine Total Protein NEGATIVE mg/dl Beta HCG, Quantitative 051070.0 mIU/ml Procedures/MDM 33-year-old female patient with no significant past medical history, currently presents to ED complaining of vaginal bleeding that started earlier today. Patient is afebrile and nontoxic-appearing. An ultrasound, beta-hCG, CBC, type and RH, UA was ordered to evaluate patient. CBC: No evidence of severe infection or anemia Urine: No elevation in nitrites, leukocyte esterase, 3+ hematuria. 33 WBC noted Rh: B positive. No indication for Rhogam at this time. beta Hc,860 PROCEDURE: US OB. CLINICAL INDICATION: Vaginal Bleed () TECHNIQUE: Transabdominal and transvaginal views of the pelvis are available for review. COMPARISON: 10/11/2018 FINDINGS: A single live intrauterine gestation is seen. There is a 13 x 4 mm area of subchorionic hemorrhage seen, hypoechoic. Gestational sac size was 4.31 cm. [place]-rump length: 2.71 cm heart rate: 176 bpm Ultrasound estimated gestational age: 9 wk 6 days. Estimated date of delivery is 05/17/2019 Unremarkable right ovary. The left ovary was not seen. There is no free fluid. IMPRESSION: Single live intrauterine with an estimated gestational age of 9 weeks and 6 days. Small hypoechoic sub chorionic hemorrhage but otherwise unremarkable study.. Patient's bleeding symptoms have stabilized while in the department.pelvic rest recommended. Patient was noted to have a subchorionic hemorrhage however has a single IUP estimated to be is 9 weeks and 6 days. She will also be treated for a urinary tract infection. Patient will be given a prescription for Keflex. Low suspicion for symptomatic anemia, ectopic , sepsis, PID, appendicitis, ovarian torsion, tubo-ovarian abscess, surgical abdomen, or other emergent conditions. Patient was educated that there is a risk for threatened . Patient to follow up with [facility] in 2 days for further evaluation and treatment. Patient is to return sooner to the ED for any worsening symptoms. Patient's questions were answered. Patient understood and agreed with discharge plan. Departure Diagnosis: Primary Impression: Vaginal bleeding in patient at less than 20 weeks ges... Condition: Stable Patient Instructions: Urinary Tract Infections in Women, Bleeding During Early Referrals: COMMUNITY CLINICS YOU HAVE RECEIVED A MEDICAL SCREENING EXAM AND THE RESULTS INDICATE THAT YOU DO NOT HAVE A CONDITION THAT REQUIRES URGENT TREATMENT IN THE EMERGENCY DEPARTMENT. FURTHER EVALUATION AND TREATMENT OF YOUR CONDITION CAN WAIT UNTIL YOU ARE SEEN IN YOUR DOCTORS OFFICE WITHIN THE NEXT 1-2 DAYS. IT IS YOUR RESPONSIBILITY TO MAKE AN APPOINTMENT FOR FOLOW-UP CARE. IF YOU HAVE A PRIMARY DOCTOR --you should call your primary doctor and schedule an appointment IF YOU DO NOT HAVE A PRIMARY DOCTOR YOU CAN CALL OUR PHYSICIAN REFERRAL HOTLINE AT IF YOU CAN NOT AFFORD TO SEE A PHYSICIAN YOU CAN CHOSE FROM THE FOLLOWING [facility] [address] [facility]. [facility] [address] [facility]. [email or web address] [address] [facility] [facility] [address] [facility] [address] [facility]. [facility]. [address] [facility]. [facility] YOU HAVE RECEIVED A MEDICAL SCREENING EXAM AND THE RESULTS INDICATE THAT YOU DO NOT HAVE A CONDITION THAT REQUIRES URGENT TREATMENT IN THE EMERGENCY DEPARTMENT. FURTHER EVALUATION AND TREATMENT OF YOUR CONDITION CAN WAIT UNTIL YOU ARE SEEN IN YOUR DOCTORS OFFICE WITHIN THE NEXT 1-2 DAYS. IT IS YOUR RESPONSIBILITY TO MAKE AN APPOINTMENT FOR FOLOW-UP CARE. IF YOU HAVE A PRIMARY DOCTOR --you should call your primary doctor and schedule and appointment IF YOU DO NOT HAVE A PRIMARY DOCTOR YOU CAN CALL OUR PHYSICIAN REFERRAL HOTLINE AT . IF YOU CAN NOT AFFORD TO SEE A PHYSICIAN YOU CAN CHOSE FROM THE FOLLOWING [facility] INSTITUTIONS: [facility] [address] [place] [address] [facility] [address] [place] [address] [facility] + [facility] [address] [place] [address] [facility]/SPECIALTIES [facility] [place] [address] [facility] [address] [place], [place] [id number] OFFICE FAX DR.ABUSLEME [facility] [address] [place] [address] DR. YO BAGDAD [address] [place] [address] DR [facility] [address] [facility], [address], [facility] [id number] [address] [place] [address] [facility] [place] [address] [place] [address] [address] [facility] [id number] - ARSEN [address], [facility] [id number] REBOLLEDO GANESH [address] [facility]. [address], [facility] [address] [address] [address] [place], [place] [id number] [facility] Hours: 8:00 am - 5:00 pm Additional Instructions: Llame al doctor obstetrica MAANA y alphonso gus EFREN PARA DENTRO DE 2-3 WALLS.Dgale a la secretaria que nosotros le instruimos hacer esta efren.Avise o llame si arias condicin se empeora antes de la efren. Regresa aqui si peor o no mejor. ABEL BENJAMIN PA-C Oct 18, 2018 04:14
[2018-10-18 04:24] VITALS: BP 106/64; PULSE 72; RESP 20
== END 2018-10-18 04:24 | disposition home or self-care (01) ==
LOC: FTE 23:47
DX: O20.9 Hemorrhage in early pregnancy, unspecified (principal); Z3A.09 9 weeks gestation of pregnancy
CPT/HCPCS: 36415; 76801; 81001; 84702; 85025; 86900; 86901

== ENCOUNTER 2018-12-05 11:30 | Emergency (ER) | payer SELFPAY ==
[~2018-12-05] VITALS: Ht 152.4 cm; Wt 60.0 kg
[2018-12-05 11:37] VITALS: BP 106/56; PULSE 83; RESP 20; Ht 152.4 cm; Wt 60.0 kg
== END 2018-12-05 13:45 | disposition left against medical advice (07) ==
LOC: FTE 11:30
DX: Z53.21 Procedure and treatment not carried out due to patient leaving prior to being seen by health care provider (principal)

== ENCOUNTER 2018-12-14 16:25 | Emergency (ER) | payer MEDICAID ==
[~2018-12-14] VITALS: Ht 160 cm; Wt 61.1 kg
[2018-12-14 16:29] VITALS: Ht 160 cm; Wt 61.1 kg
[2018-12-14] MEDS ORDERED: ONDANSETRON 4 MG INJ IV STA (16:44)
[2018-12-14] MEDS ORDERED: SOD CHLORIDE 0.9% 1,000 ML IV STA (16:44)
[2018-12-14] MEDS ORDERED: morphine 4 MG/ML VIAL IV STA (16:44)
[2018-12-14] MEDS ORDERED: ACETAMINOPHEN 325 MG TAB ONE (17:00)
--- NOTE | 2018-12-14 19:23 | ERD ---
ER Documentation Chief Complaint Chief Complaint R flank pain, R pelvic pain X 3 days HPI This is a very pleasant 33-year-old female currently 18 weeks date of her last menstrual. The patient indicates for the past 3 days she has been having severe right flank pain. She was seen at another facility and diagnosed with nephrolithiasis. Indicates however now that the pain has began to radiate from the flank region into the pelvic region. She had no fevers or shaking or chills. She had hematuria. She denies any lower abdominal cramping and has been experiencing movements. She has no fevers no shaking or chills. She is been able to tolerate oral intake. She has not taken any analgesic medication. ROS All systems reviewed and are negative except as per history of present illness. Medications Home Meds Active Scripts Cephalexin* (Keflex*) 500 Mg Capsule, 500 MG PO QID for 7 Days, CAP Prov:ABEL BENJAMIN PA-C 10/18/18 Vit No.124/Iron/FA ( Vitamin Tablet) 1 Each Tablet, 1 EACH PO DAILY, #30 TAB Prov:SERENA JIMENEZ F 10/11/18 Metoclopramide* (Reglan*) 10 Mg Tablet, 10 MG PO Q6 PRN for NAUSEA AND/OR VOMITING, #20 TAB Prov:SERENA JIMENEZ F 10/11/18 Acetaminophen* (Tylophen*) 500 Mg Capsule, 1 CAP PO Q6H PRN for PAIN AND OR ELEVATED TEMP, #20 CAP Prov:GERMÁNDIANAANKITACLAIRE F 10/11/18 Ondansetron (Ondansetron Odt) 8 Mg Tab.rapdis, 8 MG PO Q6H PRN for NAUSEA AND/OR VOMITING, #10 TAB Prov:MATEO FLORES MD 10/04/18 Nitrofurantoin Monohyd Macrocr* (Macrobid*) 100 Mg Capsr, 100 MG PO BID for 7 Days, CAP Prov:MATEO FLORES MD 10/04/18 Acetaminophen* (Tylophen*) 500 Mg Capsule, 1 CAP PO Q6H PRN for PAIN AND OR ELEVATED TEMP, #20 CAP Prov:ABEL BENJAMIN PA-C 09/29/18 Cephalexin* (Keflex*) 500 Mg Capsule, 500 MG PO QID for 7 Days, CAP Prov:ABEL BENJAMIN PA-C 09/29/18 Docusate Sodium* (Colace*) 100 Mg Capsule, 100 MG PO TID, #30 CAP Prov:ILENE GILLESPIE PA-C 04/14/18 Hydrocodone/Acetaminophen ([place] 5-325 Tablet) 1 Each Tablet, 1 TAB PO Q6H PRN for PAIN, #7 TAB Prov:ILENE GILLESPIE PA-C 04/14/18 Ondansetron (Ondansetron Odt) 4 Mg Tab.rapdis, 4 MG PO Q6H PRN for NAUSEA AND/OR VOMITING, #10 TAB Prov:ILENE GILLESPIE PA-C 04/14/18 Ibuprofen* (Motrin*) 600 Mg Tab, 600 MG PO Q6, #30 TAB Prov:ILENE GILLESPIE PA-C 04/14/18 Tramadol HCl (Tramadol HCl) 50 Mg Tablet, 50 MG PO Q6 for SEVERE PAIN LEVEL 7- 10, #20 TAB Prov:JUAN VERA NP 05/19/17 Ondansetron (Ondansetron Odt) 4 Mg Tab.rapdis, 4 MG PO Q8 PRN for NAUSEA AND/OR VOMITING, #30 TAB Prov:JUAN VERA NP 05/19/17 Omeprazole* (Omeprazole*) 20 Mg Capsule.dr, 20 MG PO DAILY, #30 Prov:JUAN VERA NP 05/19/17 Magaldrate/Simethicone* (Mylanta*) 355 Ml Susp, 30 ML PO QID PRN for GASTROINTESTINAL UPSET, #1 BOTTLE Prov:JUAN VERA NP 05/19/17 Tramadol Hcl* (Ultram*) 50 Mg Tablet, 50 MG PO Q8 for PAIN, #10 TAB Prov:FREDDY DAVE NP 12/19/16 Amoxicillin* (Amoxicillin*) 500 Mg Cap, 500 MG PO Q8 for 7 Days, #30 CAP Prov:FREDDY DAVE NP 12/19/16 Ondansetron (Ondansetron Odt) 4 Mg Tab.rapdis, 4 MG PO Q6H PRN for NAUSEA AND/OR VOMITING, #15 TAB 0 Refills Prov:AURORA DE SANTIAGO 12/17/16 Allergies Allergies: Coded Allergies: No Known Allergy (Verified , 04/14/18) PMhx/Soc History of Surgery: Yes () Anesthesia Reaction: No Hx Neurological Disorder: No Hx Respiratory Disorders: No Hx Cardiac Disorders: No Hx Psychiatric Problems: No Hx Miscellaneous Medical Probl: No Hx Alcohol Use: No Hx Substance Use: No Hx Tobacco Use: No Smoking Status: Never smoker Physical Exam Vitals Vital Signs Date Temp Pulse Resp B/P (MAP) Pulse Ox O2 O2 Flow FiO2 Time Delivery Rate 12/14/18 98.5 89 18 117/63 99 16:29 (81) Physical Exam Constitutional:Well-developed. Well-nourished. HEENT:Normocephalic. Atraumatic.Pupils were equal round reactive to light. Moist mucous membranes.No tonsillar exudates. Neck: No nuchal rigidity. No lymphadenopathy. No posterior cervical spine tenderness or step-offs. Respiratory: Not using accessory muscles of respiration.Lungs were clear to auscultation bilaterally. No rhonchi. No rales. No wheezing. Cardiovascular: Regular rate regular rhythm.No murmurs. No rubs were appreciated.S1, S2 normal. Distal pulses are palpable 2+ bilaterally. GI: Abdomen was soft. Gravid uterus. Mild suprapubic tenderness. No tenderness the right lower quadrant over McBurney's point. Psoas sign negative. Obturator sign negative. No CVA tenderness. Non Distended. No pulsatile abdominal masses or bruits. No rebound. No guarding. Bowel sounds were present and normal. Muscle skeletal: Full range of motion of both the upper and lower extremities bilaterally.Normal muscle tone.No assymetrical calf tenderness or swelling. Skin: No petechia, no purpura. No lesions on the palms or the soles of the feet. No maculopapular rash. NEURO: Patient was alert, awake, orientated x3.No facial droop. Gait observed and normal with no ataxia.Speech had regular rate and rhythm. No focal neurological deficits. Result Diagram: 12/14/18 1656 12/14/18 1656 Results 24 hrs Laboratory Tests Test 12/14/18 16:56 White Blood Count 8.5 10^3/ul Red Blood Count 4.15 10^6/ul Hemoglobin 12.5 g/dl Hematocrit 37.7 % Mean Corpuscular Volume 90.8 fl Mean Corpuscular Hemoglobin 30.1 pg Mean Corpuscular Hemoglobin Concent 33.2 g/dl Red Cell Distribution Width 12.8 % Platelet Count 217 10^3/UL Mean Platelet Volume 10.2 fl Immature Granulocytes % 0.500 % Neutrophils % 72.0 % Lymphocytes % 19.7 % Monocytes % 6.8 % Eosinophils % 0.6 % Basophils % 0.4 % Nucleated Red Blood Cells % 0.0 /100WBC Immature Granulocytes # 0.040 10^3/ul Neutrophils # 6.2 10^3/ul Lymphocytes # 1.7 10^3/ul Monocytes # 0.6 10^3/ul Eosinophils # 0.1 10^3/ul Basophils # 0.0 10^3/ul Nucleated Red Blood Cells # 0.0 10^3/ul Urine Color YELLOW Urine Clarity CLEAR Urine pH 7.0 Urine Specific [place] 1.013 Urine Ketones NEGATIVE mg/dL Urine Nitrite NEGATIVE mg/dL Urine Bilirubin NEGATIVE mg/dL Urine Urobilinogen NEGATIVE mg/dL Urine Leukocyte Esterase NEGATIVE Adrianne/ul Urine Microscopic RBC 113 /HPF Urine Microscopic WBC 7 /HPF Urine Squamous Epithelial Cells FEW /HPF Urine Bacteria FEW /HPF Urine Hemoglobin 2+ mg/dL Urine Glucose NEGATIVE mg/dL Urine Total Protein NEGATIVE mg/dl Sodium Level 138 mmol/L Potassium Level 4.4 mmol/L Chloride Level 106 mmol/L Carbon Dioxide Level 22 mmol/L Anion Gap 10 Blood Urea Nitrogen 8 mg/dl Creatinine 0.69 mg/dl Est Glomerular Filtrat Rate mL/min > 60 mL/min Glucose Level 76 mg/dl Calcium Level 8.8 mg/dl Total Bilirubin 0.0 mg/dl Direct Bilirubin 0.00 mg/dl Indirect Bilirubin 0.0 mg/dl Aspartate Amino Transf (AST/SGOT) 19 IU/L Alanine Aminotransferase (ALT/SGPT) 8 IU/L Alkaline Phosphatase 64 IU/L Total Protein 7.0 g/dl Albumin 3.7 g/dl Globulin 3.30 g/dl Albumin/Globulin Ratio 1.12 Beta HCG, Quantitative 32801.0 mIU/ml Current Medications Medications Dose Sig/Don Start Time Status Last (Trade) Ordered Route PRN Stop Time Admin Dose Reason Admin Sodium 1,000 ml @ Q1H STAT 12/14/18 DC 12/14/18 Chloride 1,000 mls/hr IV 16:44 12/14/18 17:02 17:43 Morphine 4 mg ONCE STAT 12/14/18 DC Sulfate IV 16:44 12/14/18 (morphine) 16:48 Ondansetron 4 mg ONCE STAT 12/14/18 DC 12/14/18 HCl (Zofran IV 16:44 12/14/18 17:02 Inj) 16:48 325 mg STK-MED 12/14/18 DC Acetaminophen ONCE .ROUTE 17:00 12/14/18 (Tylenol 17:01 Tab) Procedures/MDM This is a 33-year-old female who presented to the emergency department currently with a recent diagnosis of nephrolithiasis. The patient stated her pain had improved since the initial onset of pain 3 days prior to arrival but have now began to radiate to the lower pelvic region she was concerned that there could be a problem with her . I did repeat an ultrasound of the patient's kidneys that showed no obstructive uropathy or nephrolithiasis. I also obtained an ultrasound of her pelvis which indicated the following: Single live intrauterine gestation of approximately 18 weeks 2 days, based on ultrasound measurements. The estimated date of delivery is 05/15/2019. EFW percentile: 68% The patient had no evidence of renal failure. There was no leukocytosis. The patient was afebrile. My clinical suspicion was low for appendicitis. I did feel that the patient was likely passing her kidney stone as she did have an ultrasound from another facility that confirmed nephrolithiasis on the right side. The patient was given IV fluids. She was given Tylenol she was refusing morphine. There is no evidence of urinary tract infection but there was hematuria. The patient felt comfortable being discharged home and will follow up with her [employer]. The patient was discharged home in fair condition. They were instructed to return to the emergency department at any time if there was any worsening of their condition. The patient stated they would follow up with their PCP in the next 24-48 hours to initiate a suitable medication regimen under the care of their PCP as well as to allow their PCP to monitor any drug reactions. The patient was discharged home with prescriptions after they gave informed consent to the new medication. They were also fully informed by myself on the adverse effects and adverse drug interactions in order to provide adequate safeguards to prevent possible adverse reactions to medications. Departure Diagnosis: Primary Impression: Flank pain Additional Impression: Threatened Condition: Fair HAYLEY,REINA MD Dec 14, 2018 19:18
[2018-12-14] MEDS ORDERED: ACET500C5 PO (19:25)
[2018-12-14 19:44] VITALS: BP 105/69; PULSE 88; RESP 20
== END 2018-12-14 19:48 | disposition home or self-care (01) ==
LOC: E/R 16:25
DX: O26.892 Other specified pregnancy related conditions, second trimester (principal); R10.9 Unspecified abdominal pain; O20.0 Threatened abortion; Z3A.18 18 weeks gestation of pregnancy
CPT/HCPCS: 76705; 76805; 80053; 81001; 84702; 85025; 87086; 96361; 96374; J2405; J7030; Z7502; Z7610

== ENCOUNTER 2018-12-17 17:27 | Emergency (ER) | payer MEDICAID ==
[~2018-12-17] VITALS: Wt 61.4 kg
[2018-12-17] MEDS ORDERED: CEPH-443 PO (19:07)
[2018-12-17 19:25] VITALS: BP 110/67; PULSE 80; RESP 18
[2018-12-17] MEDS ORDERED: CEPHALEXIN 500 MG CAP PO ONE (19:30)
--- NOTE | 2018-12-17 20:21 | ERD ---
ER Documentation Chief Complaint Chief Complaint call received for + lab results: seen Sun blood/urine workup. 16wks preg HPI 33-year-old female in her 16th week of presents for follow-up after receiving a phone call to come back in because they had received lab results. Patient says that she was here several days ago for a UTI. At that time they did not give her any antibiotics. Currently experiencing mild dysuria without hematuria. Not taking any treatments denies fevers, CVA tenderness, vaginal bleeding, abdominal pain, nausea, vomiting. No allergies.. ROS All systems reviewed and are negative except as per history of present illness. Medications Home Meds Active Scripts Cephalexin* (Keflex*) 500 Mg Capsule, 500 MG PO BID for UTI for 7 Days, CAP Prov:JOSE LUIS [place] 12/17/18 Acetaminophen* (Tylophen*) 500 Mg Capsule, 1 CAP PO Q6H PRN for PAIN AND OR ELEVATED TEMP, #20 CAP Prov:REINA HARDY MD 12/14/18 Cephalexin* (Keflex*) 500 Mg Capsule, 500 MG PO QID for 7 Days, CAP Prov:ABEL BENJAMIN PA-C 10/18/18 Vit No.124/Iron/FA ( Vitamin Tablet) 1 Each Tablet, 1 EACH PO DAILY, #30 TAB Prov:SERENA JIMENEZ 10/11/18 Metoclopramide* (Reglan*) 10 Mg Tablet, 10 MG PO Q6 PRN for NAUSEA AND/OR VOMITING, #20 TAB Prov:SERENA JIMENEZ 10/11/18 Acetaminophen* (Tylophen*) 500 Mg Capsule, 1 CAP PO Q6H PRN for PAIN AND OR ELEVATED TEMP, #20 CAP Prov:SERENA JIMENEZ 10/11/18 Ondansetron (Ondansetron Odt) 8 Mg Tab.rapdis, 8 MG PO Q6H PRN for NAUSEA AND/OR VOMITING, #10 TAB Prov:MATEO FLORES MD 10/04/18 Nitrofurantoin Monohyd Macrocr* (Macrobid*) 100 Mg Capsr, 100 MG PO BID for 7 Days, CAP Prov:MATEO FLORES MD 10/04/18 Acetaminophen* (Tylophen*) 500 Mg Capsule, 1 CAP PO Q6H PRN for PAIN AND OR ELEVATED TEMP, #20 CAP Prov:ABEL BENJAMIN 09/29/18 Cephalexin* (Keflex*) 500 Mg Capsule, 500 MG PO QID for 7 Days, CAP Prov:ABEL BENJAMINC 09/29/18 Docusate Sodium* (Colace*) 100 Mg Capsule, 100 MG PO TID, #30 CAP Prov:ILENE GILLESPIE PA-C 04/14/18 Hydrocodone/Acetaminophen ([place] 5-325 Tablet) 1 Each Tablet, 1 TAB PO Q6H PRN for PAIN, #7 TAB Prov:ILENE GILLESPIE 04/14/18 Ondansetron (Ondansetron Odt) 4 Mg Tab.rapdis, 4 MG PO Q6H PRN for NAUSEA AND/OR VOMITING, #10 TAB Prov:ILENE GILLESPIE PA-C 04/14/18 Ibuprofen* (Motrin*) 600 Mg Tab, 600 MG PO Q6, #30 TAB Prov:ILENE GILLESPIE PA-C 04/14/18 Tramadol HCl (Tramadol HCl) 50 Mg Tablet, 50 MG PO Q6 for SEVERE PAIN LEVEL 7- 10, #20 TAB Prov:JUAN VERA NP 05/19/17 Ondansetron (Ondansetron Odt) 4 Mg Tab.rapdis, 4 MG PO Q8 PRN for NAUSEA AND/OR VOMITING, #30 TAB Prov:JUAN VERA NP 05/19/17 Omeprazole* (Omeprazole*) 20 Mg Capsule.dr, 20 MG PO DAILY, #30 Prov:JUAN VERA NP 05/19/17 Magaldrate/Simethicone* (Mylanta*) 355 Ml Susp, 30 ML PO QID PRN for GASTROINTESTINAL UPSET, #1 BOTTLE Prov:JUAN VERA NP 05/19/17 Tramadol Hcl* (Ultram*) 50 Mg Tablet, 50 MG PO Q8 for PAIN, #10 TAB Prov:FREDDY DAVE NP 12/19/16 Amoxicillin* (Amoxicillin*) 500 Mg Cap, 500 MG PO Q8 for 7 Days, #30 CAP Prov:FREDDY DAVE DENTAL ASSISTANT 12/19/16 Ondansetron (Ondansetron Odt) 4 Mg Tab.rapdis, 4 MG PO Q6H PRN for NAUSEA AND/OR VOMITING, #15 TAB 0 Refills Prov:AURORA DE SANTIAGO 12/17/16 Allergies Allergies: Coded Allergies: No Known Allergy (Verified , 04/14/18) PMhx/Soc History of Surgery: Yes () Anesthesia Reaction: No Hx Neurological Disorder: No Hx Respiratory Disorders: No Hx Cardiac Disorders: No Hx Psychiatric Problems: No Hx Miscellaneous Medical Probl: No Hx Alcohol Use: No Hx Substance Use: No Hx Tobacco Use: No Smoking Status: Never smoker FmHx Family History: No diabetes, No coronary disease, No other Physical Exam Vitals Vital Signs Date Temp Pulse Resp B/P (MAP) Pulse Ox O2 O2 Flow FiO2 Time Delivery Rate 12/17/18 98.0 80 18 110/67 99 Room Air 19:25 (81) 12/17/18 98.4 89 20 114/64 99 17:37 (81) Physical Exam Const: No acute distress Head: Atraumatic Eyes: Normal Conjunctiva ENT: Normal External Ears, Nose and Mouth. Neck: Full range of motion. No meningismus. Resp: Clear to auscultation bilaterally Cardio: Regular rate and rhythm, no murmurs Abd: Soft, non tender, non distended. Normal bowel sounds Skin: No petechiae or rashes Back: No midline or flank tenderness Ext: No cyanosis, or edema Neur: Awake and alert Psych: Normal Mood and Affect Results 24 hrs Current Medications Medications Dose Sig/Don Start Time Status Last (Trade) Ordered Route PRN Stop Time Admin Dose Reason Admin Cephalexin 500 mg ONCE ONCE 12/17/18 DC 12/17/18 (Keflex) PO 19:30 12/17/18 19:09 19:31 Procedures/MDM 33-year-old female in her 16th week of presents for follow-up after receiving a phone call to come back in because they had received lab results. Patient says that she was here several days ago for a UTI. At that time they did not give her any antibiotics. Currently experiencing mild dysuria without hematuria. Not taking any treatments denies fevers, CVA tenderness, vaginal bleeding, abdominal pain, nausea, vomiting. No allergies. Culture from last visit was reviewed and showed positive E. coli specimen and urine with susceptibility to cephalosporins. Decision was made to treat as UTI with Keflex. I have low suspicion for pyelonephritis or any other emergent condition. Patient discharged with strict ER precautions. Patient advised to follow up with PMD. All questions answered at discharge. Departure Diagnosis: Primary Impression: Urinary tract infection Urinary tract infection type: site unspecified Hematuria presence: without hematuria Qualified Codes: N39.0 - Urinary tract infection, site not specified Condition: Stable Patient Instructions: Understanding Urinary Tract Infections (UTIs) Referrals: [facility] (PCP) Additional Instructions: FOLLOW UP WITH YOUR PRIMARY CARE PHYSICIAN TOMORROW.Return to this facility if you are not improving as expected. JOSE LUIS C[place]AND Dec 17, 2018 20:21
== END 2018-12-17 19:39 | disposition home or self-care (01) ==
LOC: FTE 17:27
DX: O23.42 Unspecified infection of urinary tract in pregnancy, second trimester (principal); Z3A.16 16 weeks gestation of pregnancy
CPT/HCPCS: Z7502; Z7610; 99283

== ENCOUNTER 2018-12-31 11:30 | Outpatient (CLI) | payer MEDICAID ==
[~2018-12-31] VITALS: Ht 152.4 cm; Wt 61.9 kg
[2018-12-31 11:50] VITALS: Ht 152.4 cm; Wt 61.9 kg
[2018-12-31 11:51] VITALS: BP 111/64; PULSE 80; RESP 19
[2018-12-31] MEDS ORDERED: CEFTRIAXONE 1 GM INJ IM ONE (13:30)
--- NOTE | 2018-12-31 14:31 | TRIAGE ---
OB Triage Datetime Report Generated by CPN: 12/31/2018 14:30 Datetime: 12/31/2018 11:57 Labor Evaluation Frequency: 0 Monitor Mode: External Pattern: Normal: <= 5 Contractions in 10 Minutes Resting Tone [place]: Relaxed Contraction Comments: NONE NOTED Heart Rate FHR Baseline Rate: 140 Monitor Mode: External US Variability: Moderate 6-25 bpm Accelerations: 10X10 Comments: NST IS REACTIVE FOR THE GESTATIONAL AGE Datetime: 12/31/2018 11:56 Assessment Type: Triage Maternal Assessment Level of Consciousness: Fully Conscious DTR's/Clonus: DTRs 2+; No Clonus Headache: Denies Blurred Vision: No Respiratory Effort: Unlabored; Regular Rhythm; Equal Expansion Breath Sounds, Left: Clear and Equal Breath Sounds, Right: Clear and Equal Nausea/Vomiting: Denies RUQ Epigastric Pain: Denies Lower Extremities Edema: None Degree: None Upper Extremities Edema: None Degree: None Facial Edema: None Fall Risk Assessment History of Falling: (0) No Secondary Diagnosis: (0) No Ambulatory Aid: (0) Bedrest/Nurse Assist IV Therapy: (0) No Gait: (0) Normal/Bedrest/Immobile Mental Status: (0) Oriented to Own Ability Fall Score: 0 Fall Risk Score Definition: No Risk: No action required Datetime: 12/31/2018 11:55 Time of Arrival: 12/31/2018 11:25 EGA: 20.5 Arrived By: Ambulatory Arrived From: Home Chief Complaint: burnng with urination Movement: Present Contractions: Denies/Absent Rupture of Membranes: Denies Vaginal Bleeding: None Vaginal Discharge: Denies Recent Sexual Intercouse: Denies Abdominal Trauma: Not Applicable Patient Complaints: Other Time Provider Notified: 12/31/2018 11:47 Provider Notified: dr gann Initial Plan: nst
--- NOTE | 2019-01-11 12:05 | PN ---
Triage Information Date/Time Reason for visit: Burning sensation with urination Weeks of Gestation 20 weeks and 5 days /Para Diabetes: none Hypertention: none Objective Heart Rate: 140's Contractions: None Results/Medications Imaging Results The cervix is closed with a length of 4 cm. There is a single live intrauterine gestation. Cardiac activity is present with 154 beats per minute. There is a vertex presentation. The placenta is posterior. There is no evidence for an abruption or placenta previa. MVP = 4.5 cm. RPTAT: AA IMPRESSION: Cervix length measures 4 cm. Disposition: Discharge Assessment/Plan 33 years old with single intrauterine at 20 weeks and 5 days complaining of burning sensation with urination and pain.She states good movement. She denies nausea, vomiting, shortness of breath, chest pain, headache, visual changes, vaginal bleeding or LOF. -FHR: No sign of metabolic acidosis- Category I -Contractions: None -Ultrasound performed as noted above, normal VERONICA, cervical length of 4 cm -Urinalysis performed which revealed elevated white BC and positive leukocyte esterase. Rocephin 1 g IM given. Prescription for Macrobid 100 mg every 12 hours for 7 days given. -Urine culture ordered, I strongly recommend follow-up with her primary OB in 2 days to review urine culture results with sensitivity -Symptoms and sign of labor, preeclampsia, kick count discussed with patient, she voiced understanding. All of her questions answered. -Patient was discharged home in stable condition with the appropriate discharge instructions provided. I would like patient to have close follow-up with her primary physician or outpatient clinic in 1-2 days or return to triage for worsening symptoms or any other urgent concerns. YEYO KURTZ Jan 11, 2019 12:05
== END 2018-12-31 13:45 | disposition home or self-care (01) ==
LOC: OBT 11:30 → L-D 11:31 → OBT 13:45
PROVIDERS: ATTEND Obstetrics & Gynecology
DX: O26.892 Other specified pregnancy related conditions, second trimester (principal); Z3A.20 20 weeks gestation of pregnancy; R30.0 Dysuria
CPT/HCPCS: 76815; 76817; 81001; 87086; J0696; Z7500; G0463

== ENCOUNTER 2019-01-11 15:37 | Outpatient (CLI) | payer MEDICAID ==
[~2019-01-11] VITALS: Ht 154.9 cm; Wt 62.1 kg
[~2019-01-11 15:37] MED LIST changes: -ACET500C5 PO; -AMOX500C2 PO; -CEPH-443 PO; -DOCU-144 PO; -HYDR-4011 PO; -IBUP-1542 PO; -MAG-19 PO; -METO10TA92 PO; -NITR-58 PO; -OMEP20CA16 PO; -ONDA4TAB14 PO; -ONDA8TAB14 PO; -TRAM50TA PO; -TRAM50TA2 PO
[2019-01-11 15:48] VITALS: BP 111/70; PULSE 113; RESP 17; Ht 154.9 cm; Wt 62.1 kg
[2019-01-11] MEDS ORDERED: HYDROCODONE/APAP (10/325) TAB PO ONE (16:00)
[2019-01-11] MEDS ORDERED: ACETAMINOPHEN 1000MG/100ML IV 100 ML IVPB ONE (18:30)
[2019-01-11] MEDS ORDERED: LACTATED RINGER'S 1,000 ML IV SCH (18:30)
--- NOTE | 2019-01-11 20:05 | TRIAGE ---
OB Triage Datetime Report Generated by CPN: 01/11/2019 20:05 Datetime: 01/11/2019 19:41 Stage of : OB Triage Labor Evaluation Frequency: None noted or palpated Monitor Mode: External Resting Tone [place]: Relaxed Heart Rate FHR Baseline Rate: 140 Monitor Mode: External US Variability: Moderate 6-25 bpm Accelerations: 15X15 Comments: Appropriate for gestational age Datetime: 01/11/2019 19:40 Stage of : OB Triage Datetime: 01/11/2019 19:32 Stage of : OB Triage Temperature Route: Oral Pain Assessment Pain Scale: 3 Pain Presence: Constant Pain Type: Ache Pain Location: Head; Other (Annotations: eyes) Pain Relief Measures: Pain Medication Given Pain Assessment Comments: Pt reports slight relief after Tylenol given but remains in dark with lovett ds over eyes. Datetime: 01/11/2019 18:56 Pattern: Normal: <= 5 Contractions in 10 Minutes Resting Tone [place]: Relaxed Contraction Comments: no uc Heart Rate FHR Baseline Rate: 145 Variability: Moderate 6-25 bpm Accelerations: 10X10 Decelerations: None Category: Category I Pain Assessment Pain Scale: 4 Pain Presence: Constant Pain Location: Head Pain Goal: 3 Datetime: 01/11/2019 18:01 Pattern: Normal: <= 5 Contractions in 10 Minutes Resting Tone [place]: Relaxed Contraction Comments: no uc Heart Rate FHR Baseline Rate: 145 Monitor Mode: External US Variability: Moderate 6-25 bpm Decelerations: Variable Category: Category II Pain Assessment Pain Scale: 5 Pain Presence: Constant Pain Location: Head Pain Goal: 3 Datetime: 01/11/2019 17:00 Pattern: Normal: <= 5 Contractions in 10 Minutes Resting Tone [place]: Relaxed Contraction Comments: NO UC Heart Rate FHR Baseline Rate: 155 Variability: Moderate 6-25 bpm Decelerations: Variable Category: Category II Pain Assessment Pain Scale: 4 Pain Presence: Constant Pain Location: Head Pain Goal: 4 Datetime: 01/11/2019 16:11 Monitor Mode: External US Datetime: 01/11/2019 16:01 Monitor Mode: External US Datetime: 01/11/2019 15:50 Assessment Type: Triage Maternal Assessment Level of Consciousness: Fully Conscious DTR's/Clonus: DTRs 2+; No Clonus Headache: Frontal Blurred Vision: No Respiratory Effort: Unlabored; Regular Rhythm; Equal Expansion Breath Sounds, Left: Clear and Equal Breath Sounds, Right: Clear and Equal Nausea/Vomiting: Denies RUQ Epigastric Pain: Denies Lower Extremities Edema: None Degree: None Upper Extremities Edema: None Degree: None Facial Edema: None Fall Risk Assessment History of Falling: (0) No Secondary Diagnosis: (0) No Ambulatory Aid: (0) Bedrest/Nurse Assist IV Therapy: (0) No Gait: (0) Normal/Bedrest/Immobile Mental Status: (0) Oriented to Own Ability Fall Score: 0 Fall Risk Score Definition: No Risk: No action required Datetime: 12/31/2018 13:51 Time of Arrival: 01/11/2019 15:33 EGA: 22.1 Arrived By: Ambulatory Arrived From: Home Chief Complaint: c/o headache and eyes pain for 3 days, deny epigastric pain, deny visual disturban ce Movement: Present Contractions: Denies/Absent Rupture of Membranes: Denies Vaginal Bleeding: None Vaginal Discharge: Denies Recent Sexual Intercouse: Denies Abdominal Trauma: Not Applicable Patient Complaints: Headache Time Provider Notified: 01/11/2019 15:51 Provider Notified: hadadian Initial Plan: cbc, cmp, ua, uric acid Datetime: 12/31/2018 11:56 Fall Score: 0 Fall Risk Score Definition: No Risk: No action required Datetime: 12/31/2018 11:55 EGA: 20.4
--- NOTE | 2019-01-11 20:16 | TRIAGE ---
OB Triage Datetime Report Generated by CPN: 01/11/2019 20:16 Datetime: 01/11/2019 19:38 Assessment Type: Triage Level of Consciousness: Fully Conscious DTR's/Clonus: DTRs 2+; No Clonus Headache: Bilateral; Frontal (Annotations: and eye pain) Blurred Vision: No Respiratory Effort: Unlabored; Regular Rhythm; Equal Expansion Breath Sounds, Left: Clear and Equal Breath Sounds, Right: Clear and Equal Nausea/Vomiting: Denies RUQ Epigastric Pain: Denies Lower Extremities Edema: None Degree: None Upper Extremities Edema: None Degree: None Facial Edema: None History of Falling: (0) No Secondary Diagnosis: (0) No Ambulatory Aid: (0) Bedrest/Nurse Assist IV Therapy: (0) No Gait: (0) Normal/Bedrest/Immobile Mental Status: (0) Oriented to Own Ability Fall Score: 0 Fall Risk Score Definition: No Risk: No action required Datetime: 01/11/2019 15:50 Fall Score: 0 Fall Risk Score Definition: No Risk: No action required
--- NOTE | 2019-01-28 18:55 | PN ---
Triage Information Date/Time Reason for visit: Headache and eye pain Weeks of Gestation 22 weeks and 1 day /Para Diabetes: none Hypertention: none Objective Heart Rate: 140's Contractions: None Disposition: Discharge Assessment/Plan 33 years old with single intrauterine at 22 weeks and 1 day with a BERONICA of 05/16/2019 complaining of headache with eye pain. She states good movement. She denies nausea, vomiting, shortness of breath, chest pain, headache, visual changes, vaginal bleeding or LOF. -FHR: No sign of metabolic acidosis- Category I -Contractions: None -PIH labs done which were within normal limits -Headache decreased with the [place] -Symptoms and sign of labor, preeclampsia, kick count discussed with patient, she voiced understanding. All of her questions answered. -Patient was discharged home in stable condition with the appropriate discharge instructions provided. I would like patient to have close follow-up with her primary physician or outpatient clinic in 1-2 days or return to triage for worsening symptoms or any other urgent concerns. I did recommend the being seen at the emergency department if still is uncomfortable. YEYO KURTZ Jan 28, 2019 18:55
== END 2019-01-11 19:50 | disposition home or self-care (01) ==
LOC: OBT 15:37 → L-D 15:38 → OBT 19:50
PROVIDERS: ATTEND Obstetrics & Gynecology
DX: O26.892 Other specified pregnancy related conditions, second trimester (principal); R51 Headache; H57.10 Ocular pain, unspecified eye; Z3A.22 22 weeks gestation of pregnancy
CPT/HCPCS: 36415; 80053; 81001; 84560; 85025; 96360; J0131; J7120; Z7500; Z7610; 81003; G0463

== ENCOUNTER 2019-01-11 19:58 | Emergency (ER) | payer MEDICAID ==
[~2019-01-11] VITALS: Ht 152.4 cm; Wt 62.6 kg
[2019-01-11 20:04] VITALS: Ht 152.4 cm; Wt 62.6 kg
[2019-01-11 20:19] VITALS: BP 101/67; PULSE 84; RESP 15
--- NOTE | 2019-01-11 21:19 | ERD ---
ER Documentation Chief Complaint Chief Complaint headache and eyepain x 3 days, no n/v HPI 33-year-old female 22 weeks presenting with frontal headache for the past 3 days with associated nasal congestion, runny nose, and cough. She does state that she thinks she has a cold. she describes the headache as aching, pressure-like, nonradiating, 8 out of 10 at its worst. She has been taking Tylenol with little relief. The pain was gradual in onset. No associated fever, chills, nausea or vomiting. No photophobia or phonophobia. Patient was actually seen in labor and delivery triage prior to coming to the ER. She was sent here from upstairs. However she states that she was treated in labor and delivery and feels much better. She is not complaining of any headache at this time. ROS All systems reviewed and are negative except as per history of present illness. Medications Home Meds Active Scripts Vit No.124/Iron/FA ( Vitamin Tablet) 1 Each Tablet, 1 EACH PO DAILY, #30 TAB Prov:SERENA JIMENEZ 10/11/18 Allergies Allergies: Coded Allergies: No Known Allergy (Verified , 04/14/18) PMhx/Soc History of Surgery: Yes () Anesthesia Reaction: No Hx Neurological Disorder: No Hx Respiratory Disorders: No Hx Cardiac Disorders: No Hx Psychiatric Problems: No Hx Miscellaneous Medical Probl: No Hx Alcohol Use: No Hx Substance Use: No Hx Tobacco Use: No FmHx Family History: No diabetes Physical Exam Vitals Vital Signs Date Temp Pulse Resp B/P (MAP) Pulse Ox O2 O2 Flow FiO2 Time Delivery Rate 01/11/19 84 15 101/67 98 Room Air 20:19 (78) 01/11/19 97.8 75 18 105/58 97 20:04 (74) Physical Exam Const: No acute distress Head: Atraumatic Eyes: Normal Conjunctiva, PERRLA, EOMI ENT: Normal External Ears, Nose and Mouth. Neck: Full range of motion. No meningismus. No cervical lymphadenopathy. Resp: Clear to auscultation bilaterally Cardio: Regular rate and rhythm, no murmurs Skin: No petechiae or rashes Neur: Awake and alert, no facial asymmetry, normal speech, strength and sensations grossly intact in all 4 extremities Psych: Normal Mood and Affect Procedures/MDM Patient is presenting with a likely a primary headache that has resolved with treatment in labor and delivery. She has stable vitals and a normal neurologic exam. I have a low suspicion for serious etiology of headache such as intracranial hemorrhage, meningitis, encephalitis, or increased intracranial pressure. Patient is stable for discharge with continued outpatient follow-up. Return precautions given. Departure Diagnosis: Primary Impression: Headache Headache type: unspecified Headache chronicity pattern: acute headache Intractability: not intractable Qualified Codes: R51 - Headache Condition: Stable MELL NUGENT MD Jan 11, 2019 21:19
--- NOTE | 2019-01-11 22:50 | PN ---
Triage Information Date/Time 01/11/19 Reason for visit: headache and occular pain for 3days Weeks of Gestation 22w1d /Para A1 Diabetes: none Hypertention: none Additional information no other subjective symptoms bilateral occular pain Objective Vital Signs Date Temp Pulse Resp B/P (MAP) Pulse Ox O2 O2 Flow FiO2 Time Delivery Rate 01/11/19 84 15 101/67 98 Room Air 20:19 (78) 01/11/19 97.8 20:04 Heart Rate: 140's Contractions: None Exam no nuchal rigidity per ob who checked Disposition: Assessment/Plan A IUP 20w1d headche , not relieved by norco , IV tylenol 1000mg observed 4hrs P to ER for further evaluation ROSIBEL PABON MD Jan 11, 2019 22:50
== END 2019-01-11 22:00 | disposition home or self-care (01) ==
LOC: E/R 19:58
DX: O26.892 Other specified pregnancy related conditions, second trimester (principal); R51 Headache; R40.2142 Coma scale, eyes open, spontaneous, at arrival to emergency department; R40.2252 Coma scale, best verbal response, oriented, at arrival to emergency department; R40.2362 Coma scale, best motor response, obeys commands, at arrival to emergency department; Z3A.22 22 weeks gestation of pregnancy
CPT/HCPCS: 99282

== ENCOUNTER 2019-03-02 22:24 | Outpatient (CLI) | payer MEDICAID ==
[~2019-03-02] VITALS: Ht 152.4 cm; Wt 66.6 kg
[2019-03-02 23:00] VITALS: BP 101/62; PULSE 88; RESP 20; Ht 152.4 cm; Wt 66.6 kg
--- NOTE | 2019-03-03 01:27 | PN ---
Triage Information Date/Time March 03, 2019 Reason for visit: DFM Weeks of Gestation 29w 2d /Para 4/3 Diabetes: none Hypertention: none Additional information Pt reports that she has not felt the baby move all day. No contractions, bleeding or leaking. PMHx: none. PSHx: x 2. NKDA. Objective BP 101/62 T= 97.7 Heart Rate: 130's Heart Rate Comments Accels to 160 BPM. No decels. Contractions: None Results/Medications Imaging Results BPP 8/8 with an VERONICA of 12. Disposition: Discharge Assessment/Plan A: IUP at 29w 3d. Decreased movement. P: The baby now states that she can feel the baby move. kick counts were reviewed. Pt is d/c'ed home. ARSEN HARP MD March 03, 2019 01:27
--- NOTE | 2019-03-03 03:22 | TRIAGE ---
OB Triage Datetime Report Generated by CPN: 03/03/2019 02:37 Datetime: 03/03/2019 02:00 Stage of : OB Triage Datetime: 03/03/2019 01:55 Stage of : OB Triage Labor Evaluation Frequency: 0 Monitor Mode: External Pattern: Normal: <= 5 Contractions in 10 Minutes Resting Tone [place]: Relaxed Heart Rate FHR Baseline Rate: 135 Monitor Mode: External US Variability: Moderate 6-25 bpm Accelerations: 15X15 Decelerations: None Category: Category I Datetime: 03/03/2019 01:00 Stage of : OB Triage Labor Evaluation Frequency: irritability Monitor Mode: External Pattern: Normal: <= 5 Contractions in 10 Minutes Resting Tone [place]: Relaxed Heart Rate FHR Baseline Rate: 135 Monitor Mode: External US Variability: Moderate 6-25 bpm Accelerations: 15X15 Decelerations: None Category: Category I Datetime: 03/03/2019 00:00 Stage of : OB Triage Labor Evaluation Frequency: irritability Monitor Mode: External Pattern: Normal: <= 5 Contractions in 10 Minutes Resting Tone [place]: Relaxed Heart Rate FHR Baseline Rate: 135 Monitor Mode: External US Variability: Moderate 6-25 bpm Accelerations: 15X15 Decelerations: None Category: Category I Datetime: 03/02/2019 22:15 Time of Arrival: 03/02/2019 22:15 EGA: 29.2 Arrived By: Wheelchair Arrived From: Home Chief Complaint: Decreased movement Movement: Decreased Contractions: Denies/Absent (Annotations: Data stored by CPN on behalf of user) Rupture of Membranes: Denies (Annotations: Data stored by CPN on behalf of user) Vaginal Bleeding: None (Annotations: Data stored by CPN on behalf of user) Vaginal Discharge: Denies Recent Sexual Intercouse: Denies Abdominal Trauma: Not Applicable Patient Complaints: None Time Provider Notified: 03/03/2019 00:00 Initial Plan: EFM, BPP Datetime: 01/11/2019 19:38 Fall Risk Assessment Fall Score: 0 Fall Risk Score Definition: No Risk: No action required Datetime: 01/11/2019 15:50 Fall Risk Assessment Fall Score: 0 Fall Risk Score Definition: No Risk: No action required Datetime: 12/31/2018 13:51 EGA: 22.1 Datetime: 12/31/2018 11:56 Fall Risk Assessment Fall Score: 0 Fall Risk Score Definition: No Risk: No action required Datetime: 12/31/2018 11:55 EGA: 20.4
== END 2019-03-03 02:00 | disposition home or self-care (01) ==
LOC: OBT 22:24 → L-D 22:24 → OBT 03-03 02:00
PROVIDERS: ATTEND Obstetrics & Gynecology
DX: O36.8130 Decreased fetal movements, third trimester, not applicable or unspecified (principal); Z3A.29 29 weeks gestation of pregnancy
CPT/HCPCS: 76818; Z7500; G0463

== ENCOUNTER 2019-03-04 21:15 | Outpatient (CLI) | payer MEDICAID ==
[~2019-03-04] VITALS: Ht 152.4 cm; Wt 67.0 kg
[2019-03-04 21:46] VITALS: BP 106/68; PULSE 80; RESP 16
[2019-03-04 21:47] VITALS: Ht 152.4 cm; Wt 67.0 kg
[2019-03-04] MEDS ORDERED: ACETAMINOPHEN 500 MG TAB PO ONE (23:41)
--- NOTE | 2019-03-05 04:29 | TRIAGE ---
OB Triage Datetime Report Generated by CPN: 03/05/2019 04:29 Datetime: 03/05/2019 01:00 Stage of : OB Triage Labor Evaluation Frequency: none Monitor Mode: External Pattern: Normal: <= 5 Contractions in 10 Minutes Resting Tone Carnation: Relaxed Heart Rate FHR Baseline Rate: 125 Monitor Mode: External US Variability: Moderate 6-25 bpm Accelerations: 15X15 Decelerations: None Pain Assessment Pain Scale: 0 Pain Presence: None/Denies Pain Type: N/A Pain Relief Measures: Comfort Measures Datetime: 03/05/2019 00:30 Stage of : Labor Heart Rate FHR Baseline Rate: 125 Monitor Mode: External US Variability: Moderate 6-25 bpm Accelerations: 15X15 Decelerations: None Category: Category I Comments: Appropriate for gestational age. Datetime: 03/04/2019 22:36 Stage of : OB Triage Monitor Mode: External Resting Tone Carnation: Relaxed Contraction Comments: none Monitor Mode: External US Variability: Moderate 6-25 bpm Accelerations: 15X15 Decelerations: Variable Comments: Appropriate for gestational age. Pain Assessment Pain Scale: 4 Pain Presence: Intermittent Pain Type: Ache Pain Location: Left Flank Pain Relief Measures: Comfort Measures Datetime: 03/04/2019 22:04 Stage of : OB Triage Assessment Type: Triage Maternal Assessment Level of Consciousness: Fully Conscious DTR's/Clonus: DTRs 2+; No Clonus Headache: Denies Blurred Vision: No Respiratory Effort: Unlabored; Regular Rhythm; Equal Expansion Breath Sounds, Left: Clear and Equal Breath Sounds, Right: Clear and Equal Nausea/Vomiting: Denies RUQ Epigastric Pain: Denies Lower Extremities Edema: None Degree: None Upper Extremities Edema: None Degree: None Facial Edema: None Temperature Route: Oral Fall Risk Assessment History of Falling: (0) No Secondary Diagnosis: (0) No Ambulatory Aid: (0) Bedrest/Nurse Assist IV Therapy: (0) No Gait: (0) Normal/Bedrest/Immobile Mental Status: (0) Oriented to Own Ability Fall Score: 0 Fall Risk Score Definition: No Risk: No action required Monitor Mode: External Monitor Mode: External US Pain Assessment Pain Scale: 4 Pain Presence: Constant Pain Type: Ache Pain Location: Left Flank Pain Relief Measures: Comfort Measures Datetime: 03/04/2019 22:03 Time of Arrival: 03/04/2019 21:10 EGA: 28.1 Arrived By: Wheelchair Arrived From: Emergency Dept Movement: Present Contractions: Denies/Absent Rupture of Membranes: Denies Vaginal Bleeding: None Vaginal Discharge: Denies Abdominal Trauma: Not Applicable Patient Complaints: Other Time Provider Notified: 03/05/2019 00:30 Provider Notified: CARYN Initial Plan: VS, EFM Datetime: 03/04/2019 21:23 EGA: 27.6 Datetime: 03/02/2019 22:15 EGA: 29.2 Provider Notified: Dr. Reiche Datetime: 01/11/2019 19:38 Fall Score: 0 Fall Risk Score Definition: No Risk: No action required Datetime: 01/11/2019 15:50 Fall Score: 0 Fall Risk Score Definition: No Risk: No action required Datetime: 12/31/2018 13:51 EGA: 22.1 Datetime: 12/31/2018 11:56 Fall Score: 0 Fall Risk Score Definition: No Risk: No action required Datetime: 12/31/2018 11:55 EGA: 20.4
--- NOTE | 2019-03-05 09:06 | PN ---
Triage Information Date/Time March 04, 2019 Late entry note Reason for visit: Patient presents with complaint of left flank pain. Weeks of Gestation 28 weeks and 1 day /Para 4 para 3 Diabetes: none Hypertention: none Additional information 33-year-old G4, P3 with IUP at 28 weeks and 1 day with left flank pain presented to triage for evaluation. She denies any leaking of fluid, vaginal bleeding decreased movement or urinary symptoms. She denies any fever or chills. Denies any comp occasions during her course. Objective Vital Signs Date Temp Pulse Resp B/P (MAP) Pulse Ox O2 O2 Flow FiO2 Time Delivery Rate 03/04/19 98.3 80 16 106/68 Room Air 21:46 (81) Heart Rate: 130's Heart Rate Comments Appropriate for gestational age and category 1 No contraction of the monitor noted Contractions: None Exam General appearance: Alert and oriented x4 does not appear to be in any acute distress Abdomen: Soft, gravid, no CVA tenderness, no rebound tenderness, no guarding, no rigidity no evidence of acute abdomen Fundal height consider gestational age Cervical length: 4.3 BPP: 8/8 VERONICA: 20.3 Laboratory Tests 03/04/19 22:38 Results/Medications Result Diagram: 03/04/19 2238 Results 24 hrs Laboratory Tests Test 03/04/19 21:20 03/04/19 22:38 Urine Color COLORLESS Urine Clarity CLEAR Urine pH 8.0 Urine Specific [place] 1.005 Urine Ketones NEGATIVE Urine Nitrite NEGATIVE Urine Bilirubin NEGATIVE Urine Urobilinogen NEGATIVE Urine Leukocyte Esterase NEGATIVE Urine Hemoglobin NEGATIVE Urine Glucose NEGATIVE Urine Total Protein NEGATIVE White Blood Count 10.2 Red Blood Count 4.04 L Hemoglobin 11.6 L Hematocrit 35.4 L Mean Corpuscular Volume 87.6 Mean Corpuscular Hemoglobin 28.7 L Mean Corpuscular Hemoglobin Concent 32.8 Red Cell Distribution Width 13.2 Platelet Count 217 Mean Platelet Volume 9.9 Immature Granulocytes % 1.400 H Neutrophils % 64.0 Lymphocytes % 22.0 Monocytes % 7.8 Eosinophils % 4.3 Basophils % 0.5 Nucleated Red Blood Cells % 0.0 Immature Granulocytes # 0.140 H Neutrophils # 6.5 Lymphocytes # 2.2 Monocytes # 0.8 Eosinophils # 0.4 Basophils # 0.1 Nucleated Red Blood Cells # 0.0 Imaging Results PROCEDURE: US OB biophysical profile. CLINICAL INDICATION: abdominal pain TECHNIQUE: Multiple sonographic images of the pelvis were obtained. The images were reviewed on a PACS workstation. COMPARISON: None FINDINGS: There is a single intrauterine gestation in cephalic lie with positive heart beat. Amniotic fluid index measures 20.3 cm. Placenta is posterior fundal grade 1. Biophysical profile: movement 2/2 tone 2/2. breathing 2/2 VERONICA 2/2 Total 05/21 IMPRESSION: Normal biophysical profile . Disposition: Discharge Assessment/Plan IUP at 20 weeks and 1 day Left flank pain, musculoskeletal pain Resolved after she received a dose of Tylenol thousand milligrams and hydration. No evidence of labor or PPROM NST appropriate for gestational age and testing including BPP reassuring Patient will be discharged home today. Strict labor precautions kick count and follow-up in 24 hours with primary OB office recommended and discussed with the patient Danger signs explained to the patient by me and RN. She was advised to present to triage if she has any of those symptoms including contractions, leaking of fluid, vaginal bleeding, decreased movement, fever, chills, abdominal pain or any other concerns. Patient verbalized understanding. All questions were answered to patient's with satisfaction. AGAPITO RUBIN MD March 05, 2019 09:06
== END 2019-03-05 01:20 | disposition home or self-care (01) ==
LOC: OBT 21:15 → L-D 21:16 → OBT 03-05 01:20
PROVIDERS: ATTEND Obstetrics & Gynecology
DX: O26.893 Other specified pregnancy related conditions, third trimester (principal); R10.9 Unspecified abdominal pain; Z3A.28 28 weeks gestation of pregnancy
CPT/HCPCS: 76815; 76817; 76818; 81003; 85025; Z7500; Z7610; G0463

== ENCOUNTER 2019-04-27 21:49 | Outpatient (CLI) | payer MEDICAID ==
[~2019-04-27] VITALS: Ht 152.4 cm; Wt 71.8 kg
[2019-04-27 22:43] VITALS: BP 99/62; PULSE 83; RESP 17
[2019-04-27] MEDS ORDERED: ACETAMINOPHEN 500 MG TAB PO STA (23:19)
--- NOTE | 2019-04-28 00:09 | PN ---
Triage Information Date/Time April 28, 2019 Reason for visit: Uterine contractions Weeks of Gestation 37w /Para 4/3 Diabetes: none Hypertention: none Additional information Pt reports back pain and pressure this evening. She also reports nasal congestion since this AM. Last night she was fine and slept well. PMHx: none. PSHx: x 2. POBHx: x 1, then x 2. NKDA. Objective Vital Signs Date Temp Pulse Resp B/P (MAP) Pulse Ox O2 O2 Flow FiO2 Time Delivery Rate 04/27/19 98.3 83 17 99/62 (74) Room Air 22:43 Heart Rate: 140's Heart Rate Comments Reactive, no decels. Contractions: >10 Minutes Apart Exam 40%/closed/-3. Results/Medications Results 24 hrs Laboratory Tests Test 04/27/19 22:00 Urine Color STRAW Urine Clarity SLIGHTLY CLOUDY A Urine pH 8.0 Urine Specific [place] 1.004 Urine Ketones NEGATIVE Urine Nitrite NEGATIVE Urine Bilirubin NEGATIVE Urine Urobilinogen NEGATIVE Urine Leukocyte Esterase NEGATIVE Urine Microscopic RBC 0 Urine Microscopic WBC 2 Urine Squamous Epithelial Cells FEW Urine Bacteria FEW A Urine Hemoglobin NEGATIVE Urine Glucose NEGATIVE Urine Total Protein NEGATIVE Disposition: Discharge Assessment/Plan A: IUP at 36 weeks. False labor. P: Pt was given Tylenol for her cold and back pain. Instructed to go home and take a nice hot shower and then go to bed and get a good night's sleep. Gave instructions on when to return. ARSEN HARP MD Apr 28, 2019 00:09
== END 2019-04-28 00:05 | disposition home or self-care (01) ==
LOC: OBT 21:49 → L-D 21:51 → OBT 04-28 00:05
PROVIDERS: ATTEND Obstetrics & Gynecology
DX: O62.9 Abnormality of forces of labor, unspecified (principal); O47.03 False labor before 37 completed weeks of gestation, third trimester; O34.219 Maternal care for unspecified type scar from previous cesarean delivery; Z3A.37 37 weeks gestation of pregnancy
CPT/HCPCS: 81001; 87086; Z7500; Z7610; 81003; G0463

== ENCOUNTER 2019-05-11 07:07 | Inpatient (IN) | payer MEDICAID ==
[~2019-05-11] VITALS: Ht 154.9 cm; Wt 71.4 kg
[2019-05-11 07:23] VITALS: Ht 154.9 cm; Wt 71.4 kg
[2019-05-11] MEDS ORDERED: MISOPROSTOL 200 MCG TAB PR PRN ×2 (07:30→10:30)
[2019-05-11] MEDS ORDERED: OXYTOCIN 30 UNITS/LR 500 ML IV SCH ×2 (07:30→10:15)
[2019-05-11] MEDS ORDERED: CEFAZOLIN 2 GM/50 ML (PMX) 50 ML IVPB SCH (07:30)
[2019-05-11] MEDS ORDERED: METHYLERGONOVINE 0.2 MG INJ IM PRN ×2 (07:30→10:30)
[2019-05-11] MEDS ORDERED: OXYTOCIN 30 UNITS/LR 500 ML IV PRN ×2 (07:30→10:30)
[2019-05-11] MEDS ORDERED: CARBOPROST 250 MCG INJ IM PRN ×2 (07:30→10:30)
[2019-05-11] MEDS: LACTATED RINGER'S 1,000 ML IV SCH ×3 (07:59→23:18)
--- NOTE | 2019-05-11 08:27 | HP ---
Date/Time of Note Date/Time of Note DATE: 05/11/19 TIME: 08:18 OB - History Hx of Present Free Text/Dictation History of present illness: 33-year-old G 5P 3 at 39 week and 2 day(s) presents repeat section. Obstetric history: Vaginal delivery at 40 weeks and 2005, section in 2006 and 2014, D&C in 2008 Gynecology: Last menstrual period approximately 08/08/2018 Past medical history: HPV 2013 Surgical history: D&C 2008 Family history: Noncontributory Social history: negative for tobacco/alcohol/recreational drugs Allergies: No known drug allergies Medications: vitamins Physical exam Vitals: Stable General: No apparent distress Cardiovascular: Regular rate and rhythm Pulmonary: Clear to auscultation bilaterally Abdomen: Gravid Uterus: Shlomo's 360g vertex Extremities: Nontender to palpation Psychological: Alert oriented EFM: Category 1/130/jennifer/accels/decels Benson: irregular labs: Blood type: B positive H/H: 14.1/41.5 Rubella: immune HepBSAg: nonreactive RPR: NR HIV: negative GC/CT: negative GBS: negative 1h GTT: normal Assessment/plan: 1. Repeat section-admit to labor and delivery. Routine labs and vitals. Consented for repeat section. Eating Disorder Psychologist ID [id number]. Risks/benefits/alternatives/indications discussed with the patient including blood transfusion and hysterectomy. All inquiries addressed. 2. HPV 3. History of urinary tract infectionpositive cultures for E. coli during this . Status post treatment Past Family/Social History * Past Medical, Surgical, Family and Obstetric Histories reviewed from chart. OB Admission Exam Last 72 hours Lab Results CBC & BMP 05/11/19 07:00 SEBAS MANCINI MD May 11, 2019 08:27
[2019-05-11] MEDS ORDERED: ONDANSETRON 4 MG INJ ONE (08:41)
[2019-05-11] MEDS ORDERED: OXYTOCIN 30 UNITS/LR 500 ML BAG IV ONE (08:41)
[2019-05-11] MEDS ORDERED: OXYTOCIN 10 UNIT INJ ONE ×2 (08:41)
[2019-05-11] MEDS ORDERED: morphine SULFATE/PF (10 MG/10 ML) INJ ONE (08:41)
--- NOTE | 2019-05-11 09:01 | PREAC ---
Date/Time of Note Date/Time of Note DATE: 05/11/19 TIME: 08:58 Anesthesia Eval and Record Evaluation Time Pre-Procedure Interview DATE: 05/11/19 TIME: 08:58 Age 33 Sex female NPO: 8 hrs Preoperative diagnosis IUP Planned procedure Repeat Csection Past Medical History Past Medical History: Includes : : Surgery & Anesthesia Issues No known issue Meds Anticoagulation: No Beta Rebecca within 24 hr: No Reason Beta Rebecca not given: Pt. not on B-Rebecca Active Scripts Vit No.124/Iron/FA ( Vitamin Tablet) 1 Each Tablet, 1 EACH PO DAILY, #30 TAB Prov:SERENA JIMENEZ F 10/11/18 Current Medications Lactated Ringer's 1,000 ml @ 125 mls/hr Q8H IV Last administered on 05/11/19at 07:59; Admin Dose 125 MLS/HR; Start 05/11/19 at 07:18 Cefazolin Sodium/ Dextrose 50 ml @ 100 mls/hr ONCE IVPB ; Start 05/11/19 at 07:30 Oxytocin/Lactated Ringer's 500 ml @ 125 mls/hr POST IV ; Start 05/11/19 at 07:30 Oxytocin/Lactated Ringer's 500 ml @ 0 mls/hr ONCE PRN IV .VAGINAL BLEEDING; Start 05/11/19 at 07:30 Methylergonovine Maleate (Methergine) 0.2 mg ONCE PRN IM .VAGINAL BLEEDING; Start 05/11/19 at 07:30 Carboprost Tromethamine (Hemabate) 250 mcg ONCE PRN IM .VAGINAL BLEEDING; Start 05/11/19 at 07:30 Misoprostol (Cytotec) 1,000 mcg ONCE PRN ID .VAGINAL BLEEDING; Start 05/11/19 at 07:30 Meds reviewed: Yes Allergies Coded Allergies: No Known Allergy (Verified , 04/27/19) Allergies Reviewed: Yes Labs/Studies Labs Reviewed: Reviewed by anesthesiologist Result Diagram: 05/11/19 0700 Laboratory Tests 05/11/19 07:00 Blood Bank Test 05/11/19 07:00 Blood Type B POSITIVE Rh Immune Globulin Candidate NO test: Positive Studies: ECG Pre-procedure Exam Last vitals BP:119/64, P:78, Spo2:100%, T:98,8 Airway: Adequate mouth opening, Adequate thyromental dist Mallampati: Mallampati II Teeth: Normal Lung: Normal Heart: Normal ASA Physical Status ASA physical status: 2 Emergency: None Planned Anesthetic Neuraxial: Spinal Planned Pain Management Sub-arachniod narcotics, Parenteral pain med Pre-operative Attestations Prior to commencing anesthesia and surgery, the patient was re-evaluated, there was verification of: *The patient's identity *The results of appropriate recent lab work and preoperative vital signs *The above evaluation not changing prior to induction *Anesthetic plan, risk benefits, alternative and complications discussed with patient/family; questions answered; patient/family understands, accepts and wishes to proceed. CHIDI JOHNSON MD May 11, 2019 09:01
--- NOTE | 2019-05-11 10:15 | OPR ---
Operative Report Planned Procedure Procedure date May 11, 2019 Procedure(s) Low transverse section Performed by see signature line Shove Up: MARY LUTZ MD Pre-procedure diagnosis History of section [id number] Anesthesia Type: [id number] spinal Post-Procedure Post-procedure diagnosis Same Findings Live Baby [], Apgars [] and [], weight [], position [], [] presentation []cord. Estimated Blood Loss: 600 - 700 mls Specimen(s) none Grafts/Implant(s) none Complication(s) none Procedure Description Pre-Operative Diagnosis: 1. 33-year-old G 5 P3 at 39.2 weeks gestation 2. section x2 Post-Operative Diagnosis: Same Procedure(s): Low transverse section Surgeon: Dr. Toledo Shove Up: Dr. Lutz Anesthesia: Vital Findings: []infant in OA presentation weighing 3145 g with Apgars of 9 and 9 at 1 and 5 minutes respectively. No nuchal cord. Normal appearing tubes and ovaries with paratubal cysts noted bilaterally. Placenta intact w 3VC. Indications: Repeat section Description of Procedure: After informed consent was obtained, the patient was taken to the operating room where anesthesia was initiated. The patient was placed in the dorsal, supine position with left lateral tilt to avoid aorto-caval compression. Prior to the beginning of the procedure, sequential compression devices were placed on the patient's lower extremities and activated. A valdez catheter was placed in the bladder without difficulty. Ancef and azithromycin were administered. A surgical pause identified the patient and procedure and all parties were in agreement. The patient's abdomen was prepped and draped in sterile fashion. An Allis skin test was performed to ensure adequate anesthesia. A 10 cm Pffannenstiel skin incision was made 2 cm above the pubic symphysis using a scalpel and carried down through to the level of the fascia using bovie. The fascia was scored in the midline and extended bilaterally. The fascial incision was grasped with Kena clamps, elevated, and sharply and bluntly dissected from the rectus muscles superiorly to the level of the umbillicus and inferiorly to the level of the pubic symphysis. The rectus muscles were then in the midline, and the peritoneum was tented up and entered bluntly. The peritoneal incision was extended superiorly and inferiorly with good visualization of the bladder An [place] retractor was then inserted. A hysterotomy was made in a semicircular fashion using a scalpel and extended bilaterally with blunt dissection. Amniotomy was performed and fluid was noted to be clear. The 's head was then grasped, elevated to the level of the incision and delivered atraumatically in OA presentation, followed by the body which was delivered without difficulty. The infant was suctioned, cord clamped x 2 and cut. Infant was handed to the nursing staff. Cord blood was collected. The placenta was expressed manually. The uterus was cleared of all clots and debris. The uterine incision was repaired with 0-monocryl in a running locking fashion. A second layer of 0-monocryl was utilizied. Several interrupted and figure of eight 0-monocryl and 2-0 monocryl were utilized along the uterine incision to ensure hemostasis. Hemostasis was noted. The [place] retractor was removed. The uterine incision was noted to be hemostatic. The fascia was reapproximated with 0- monocryl. The subcutaneous tissue was closed with 2-monocryl. The skin was reapproximated with 3-o monocryl on a bianca. Dermabond was placed on the incision. The uterus was firm at the end of the procedure. All counts were correct x 2 at the end of the procedure. Estimated Blood Loss: 700 ml; no blood replaced Drains: Valdez catheter with 100 ml of clear urine at end of procedure Fluids Given: 1400 ml Specimens/ Cultures: cord blood Implants: None Complications: None Disposition: recovery in hemodynamically stable. Condition: stable SEBAS TOLEDO MD May 11, 2019 10:15
--- NOTE | 2019-05-11 10:23 | PAC ---
Date/Time of Note Date/Time of Note DATE: 05/11/19 TIME: 10:22 Post-Anesthesia Notes Post-Anesthesia Note Activity: WNL Respiratory function: WNL Cardiovascular function: WNL Mental status: Baseline Pain reasonably controlled: Yes Hydration appropriate: Yes Nausea/Vomiting absent: Yes Comments BP:112/67, P:78, Spo2:100%, T:98,8 CHIDI JOHNSON MD May 11, 2019 10:23
[2019-05-11] MEDS ORDERED: NALOXONE (0.4 MG/ML) INJ IV PRN (10:30)
[2019-05-11] MEDS ORDERED: ONDANSETRON 4 MG INJ IV PRN (10:30)
[2019-05-11] MEDS ORDERED: NA PHOSPHATE/BIPHOS 133 ML ENEMA PR PRN (10:30)
[2019-05-11] MEDS ORDERED: DIPHENHYDRAMINE 50 MG INJ IV PRN (10:30)
[2019-05-11] MEDS ORDERED: NACL 0.9% 3 ML SYG IV SCH (10:30)
[2019-05-11] MEDS ORDERED: morphine 2 MG INJ IV PRN (10:30)
[2019-05-11] MEDS: KETOROLAC 30 MG INJ IV PRN ×2 (11:41→22:27)
[2019-05-11] MEDS ORDERED: IBUPROFEN 600 MG TAB PO SCH (12:00)
[2019-05-11 13:15] VITALS: BP 97/57; PULSE 58; RESP 20
[2019-05-11 14:45] VITALS: BP 98/56; PULSE 60; RESP 18
[2019-05-11] MEDS ORDERED: OXYCODONE/ACETAMINOPHEN (5/325) TAB PO PRN (18:00)
[2019-05-12] VITALS: BP 92/54; PULSE 56; RESP 18
[2019-05-12 03:23] VITALS: BP 97/59; PULSE 63; RESP 17
[2019-05-12] MEDS: LACTATED RINGER'S 1,000 ML IV SCH (04:18)
[2019-05-12 07:57] VITALS: BP 91/54; PULSE 80; RESP 17
[2019-05-12] MEDS: KETOROLAC 30 MG INJ IV PRN (08:45)
[2019-05-12] MEDS: IBUPROFEN 600 MG TAB PO SCH ×2 (12:33→17:51)
[2019-05-12 16:00] VITALS: BP 104/62; PULSE 73; RESP 16
[2019-05-12] MEDS: OXYCODONE/ACETAMINOPHEN (5/325) TAB PO PRN (16:20)
[2019-05-12] MEDS: LANOLIN HPA 1 PKT TOP PRN (16:56)
--- NOTE | 2019-05-12 19:05 | PN ---
Date/Time of Note Date/Time of Note DATE: 05/12/19 TIME: 19:05 OB Subjective Subjective Subjective POD#1 Patient is doing well. She denies nausea, vomiting, shortness of breath, chest pain, headache. She has been ambulating without difficulty, tolerating regular diet. Pain is well controlled on current medications OB Objective Objective Objective Vital Signs Date Temp Pulse Resp B/P (MAP) Pulse Ox O2 O2 Flow FiO2 Time Delivery Rate 05/12/19 98.3 73 16 104/62 Room Air 16:00 (76) 05/12/19 98 07:57 General: AAO X 3, comfortable, NAD, appropriate mood and affect. ABD: +BS. Soft, non-tender. Uterus 2 cm below umbilicus Incision: Clear, dry, intact. No erythema, drainage or induration. Flank: No CVA tenderness (B/L) LE: Mild edema. No clubbing, cyanosis, thigh or calf tenderness (B/L). Homans 'sign is negative OB Assessment/Plan Other plan: 33 years old -0-1-4 s/p repeat delivery at 39 weeks and 2 days. POD#1 - AF, VSS - Baby is doing well, at bed side. She is bonding well - Contraception methods with R/B/A/FR discussed - Continue care - Hemoglobin 10.3, hematocrit 32.3 YEYO KURTZ May 12, 2019 19:05
[2019-05-12 20:35] VITALS: BP 98/59; PULSE 75; RESP 18
[2019-05-13] MEDS: IBUPROFEN 600 MG TAB PO SCH ×5 (00:29→23:30)
[2019-05-13] MEDS: OXYCODONE/ACETAMINOPHEN (5/325) TAB PO PRN (02:06)
[2019-05-13 03:34] VITALS: BP 97/54; PULSE 72; RESP 17
[2019-05-13 07:40] VITALS: BP 110/73; PULSE 61; RESP 18
--- NOTE | 2019-05-13 09:45 | PN ---
Date/Time of Note Date/Time of Note DATE: 05/13/19 TIME: 09:44 OB Subjective Subjective Subjective POD#2 Patient is doing well. She denies nausea, vomiting, shortness of breath, chest pain, headache. She has been ambulating without difficulty, tolerating regular diet. Pain is well controlled on current medications OB Objective Objective Objective Vital Signs Date Temp Pulse Resp B/P (MAP) Pulse Ox O2 O2 Flow FiO2 Time Delivery Rate 05/13/19 98.0 72 17 97/54 (68) Room Air 03:34 05/12/19 98 07:57 General: AAO X 3, comfortable, NAD, appropriate mood and affect. ABD: +BS. Soft, non-tender. Uterus 2 cm below umbilicus Incision: Clear, dry, intact. No erythema, drainage or induration. Flank: No CVA tenderness (B/L) LE: Mild edema. No clubbing, cyanosis, thigh or calf tenderness (B/L). Homans 'sign is negative OB Assessment/Plan Other plan: 33 years old -0-1-4 s/p repeat delivery at 39 weeks and 2 days. POD#2 - AF, VSS - Baby is doing well, at bed side. She is bonding well - Contraception methods with R/B/A/FR discussed - Continue care - Discharge home tomorrow - Rx and instruction given - Follow up in one and 6 weeks YEYO KURTZ May 13, 2019 09:45
--- NOTE | 2019-05-13 09:48 | DS ---
Date/Time of Note Date/Time of Note DATE: 05/13/19 TIME: 09:46 Obstetrical Discharge Record Final Diagnosis Final Diagnosis: Term delivered Other Final Diagnosis 33 years old -0-1-4 s/p repeat delivery at 39 weeks and 2 days. POD#2. course was unremarkable. She is ambulating and tolerating regular diet. She is voiding without difficulty. Pain is controlled on current medication. - AF, VSS - Baby is doing well, at bed side. She is bonding well - Contraception methods with R/B/A/FR discussed - Continue care - Discharge home tomorrow - Rx and instruction given - Follow up in one and 6 weeks Section Section: Repeat Condition on Discharge Physical Assessment Last Vitals: Vital Signs Date Temp Pulse Resp B/P (MAP) Pulse Ox O2 O2 Flow FiO2 Time Delivery Rate 05/13/19 98.0 72 17 97/54 (68) Room Air 03:34 05/12/19 98 07:57 Voiding: Yes Bowel Movement: Yes Breast: Soft, non-tender Fundus: Firm Calf Tenderness: No Patient Condition: Stable YEYO KURTZ May 13, 2019 09:48
[2019-05-13 15:41] VITALS: BP 111/70; PULSE 70; RESP 18
[2019-05-13] MEDS ORDERED: SENNA/DOCUSATE NA (8.6MG/50MG) TAB PO ONE (18:00)
[2019-05-13 20:40] VITALS: BP 129/75; PULSE 72; RESP 18
[2019-05-13] MEDS: SENNA/DOCUSATE NA (8.6MG/50MG) TAB PO SCH (22:16)
[2019-05-13] MEDS: LANOLIN HPA 1 PKT TOP PRN (23:31)
[2019-05-14 03:59] VITALS: BP 108/56; PULSE 69; RESP 17
[2019-05-14] MEDS: IBUPROFEN 600 MG TAB PO SCH ×2 (05:52→12:26)
[2019-05-14 08:30] VITALS: BP 111/56; PULSE 65; RESP 18
[2019-05-14] MEDS ORDERED: DIPHTH/TET/ACEL PERTUSS (ADULT) 0.5 ML VIAL IM* ONE (09:00)
[2019-05-14] MEDS ORDERED: MEASLES,MUMPS,RUBELLA VACCINE INJ SC* ONE (09:00)
[2019-05-14] MEDS: SENNA/DOCUSATE NA (8.6MG/50MG) TAB PO SCH (10:39)
== END 2019-05-14 14:26 | disposition home or self-care (01) | DRG 788 ==
LOC: L-D 07:07 → PP1 12:50
PROVIDERS: ADMIT Obstetrics & Gynecology; ATTEND Obstetrics & Gynecology
PROC: 10D00Z1 Extraction of Products of Conception, Low, Open Approach (ICD-10-PCS; principal; 2019-05-11 09:00)
DX: O34.211 Maternal care for low transverse scar from previous cesarean delivery (principal); Z3A.39 39 weeks gestation of pregnancy; Z37.0 Single live birth
CPT/HCPCS: 85025; 85610; 85730; 86592; 86850; 86900; 86901; 87340; 90715; 99464; J0690; J1885; J2274; J2405; J2590; J7120